=== PATIENT | female | born 1945 | race Caucasian/White ===

== ENCOUNTER 2018-08-08 17:07 | Inpatient (IN) ==
[2018-08-08] MEDS ORDERED: ALBUTEROL NEB INH ONE (17:56)
[2018-08-08] MEDS ORDERED: SOLU-MEDROL IV ONE (17:56)
--- NOTE | 2018-08-08 17:59 | PROVIDER DOCUMENTATION ---
HPI-General Adult - General Chief Complaint: Shortness of Breath Stated Complaint: LOW 02 Time Seen by Provider: 08/08/18 17:28 Source: patient Allergies/Adverse Reactions: Patient Allergies Allergy/AdvReac Type Severity Reaction Status Date / Time No Known Allergies Allergy Verified 04/26/18 09:00 Home Medications: Home Medication List Medication Instructions Recorded Confirmed Last Taken Type Omeprazole [Prilosec] 40 mg PO DAILY@0709/16/13 08/08/18 08/08/18 07:00 History Albuterol Sulfate Inhaler 2 puff INH Q6H PRN PRN 08/18/14 08/08/18 06/16/18 16: 00 History [Ventolin Hfa] Levothyroxine [Synthroid] 50 microgm PO DAILY@69908/18/14 08/08/18 08/08/18 07 :00 History Amlodipine [Norvasc] 5 mg PO DAILY tablet 01/07/18 08/08/18 08/08/18 07:00 Rx Losartan [Cozaar] 100 mg PO DAILY tablet 01/07/18 08/08/18 08/08/18 07:00 Rx Albuterol 2.5MG/Ipratrop 0.5MG 3 ml INH Q4H PRN PRN 06/17/18 08/08/18 06/16/18 14:00 History [Duoneb (A & A)] Potassium Chloride 1 tab PO TID 06/17/18 08/08/18 08/08/18 07:00 History Alprazolam [Xanax] 0.25 mg PO TID PRN PRN #20 tab 07/27/18 08/08/18 Unknown Rx Budesonide Inhaler [Pulmicort 1 puff INH RTBID #1 inhaler 07/27/18 08/08/1804/18 07:00 Rx Flexhaler] Guaifenesin/Dm [Robitussin-Dm] 10 ml PO Q4H PRN PRN bottle 07/27/18 08/08/18 Unknown Rx Ipratropium Randall Inhaler 2 puff INH [id number] #1 inhaler 07/27/18 08/08/1804/18 07:00 Rx [Atrovent Hfa] Loperamide [Imodium] 2 mg PO PRN PRN capsule 07/27/18 08/08/18 Unknown Rx Ondansetron Odt [Zofran Odt] 4 mg PO Q4-6H PRN PRN #20 tab 07/27/18 08/08/18 Unknown Rx Prednisone 5 mg PO DAILY #30 tab 07/27/18 08/08/18 08/08/18 07:00 Rx Sertraline [Zoloft] 50 mg PO DAILY #30 tab 07/27/18 08/08/18 08/08/18 07:00 Rx Tramadol [Ultram] 50 mg PO Q6H PRN PRN #20 tab 07/27/18 08/08/18 Unknown Rx - History of Present Illness -Gen Adult Nature of Presenting Problems: Sent here from Dr. Briceño's office for hypoxemia. She has had increasing dyspnea for last week. Endorses mild cough. Admitted recently for pna. Her cultures grew pseudomonas. She denies chest pain. On home oxygen. Location of Pain/Injury: reports: other (bilateral flank) Pain Radiation: reports: no radiation Quality of Pain: reports: sharp Severity: reports: mild Onset/Duration: reports: 3 days ago, 4 days ago Timing: reports: still present Context/Activities at Onset: reports: none Modifying Factors: worse with: nothing Associated Symptoms: reports: cough, shortness of breath. denies: anxiety, chest pain, constipation, dizziness, fatigue, headaches, malaise, sinus congestion/drainage, syncope, trouble walking Similar Symptoms Previously?: Yes Recently seen or treated by another doctor?: Yes Review of Systems - Adult - REVIEW OF SYSTEMS - ADULT Constitutional: reports: see HPI, fatique Eyes: reports: no symptoms reported Ears, Nose, Mouth & Throat: reports: no symptoms reported Cardiovascular: reports: no symptoms reported. denies: chest pain, syncope Respiratory: reports: see HPI, cough, shortness of breath, wheezing. denies: hemoptysis Gastrointestinal: reports: no symptoms reported Genitourinary: reports: no symptoms reported Musculoskeletal: reports: see HPI, back pain Integumentary: reports: no symptoms reported. denies: rash Neurological: reports: no symptoms reported. denies: numbness, paresthesia Psychiatric: reports: no symptoms reported Endocrine: reports: no symptoms reported Hematologic/Lymphatic: reports: no symptoms reported Allergic/Immunologic: reports: no symptoms reported All Other Systems: Reviewed and Negative Past History - Adult - PAST MEDICAL HISTORY-ADULT Review of Records: reports: Old Records Reviewed, Nursing Assessment Review, Medications Reviewed, Social history reviewed & non-contributory. Major Childhood Illnesses: reports: denies history Cardiovascular: reports: HTN Respiratory: reports: asthma, COPD (o2 at home) Gastrointestinal: reports: GERD Obstetrical/Gynecological: reports: other (Left Breast CA) Genitourinary: reports: denies history Musculoskeletal: reports: denies history Neurological: reports: denies history Endocrine/Immune: reports: thyroid disorder Other Conditions: reports: denies history - PRIOR SURGERIES/PROCEDURES Surgical/Procedure History: reports: cholecystectomy, hysterectomy, other ( MASTECTOMY) - IMMUNIZATION STATUS Childhood Immunizations: See Nurse Assessment Flu Vaccine: See Nurse Assessment - FAMILY HISTORY Family History: reviewed, not pertinent - SOCIAL HISTORY Smoking: denies Substance Use: none/never Alcohol Use Frequency: never Living Situation: family Physical Exam-General - PHYSICAL EXAM-ADULT Initial Vital Signs Reviewed: Yes - CONSTITUTIONAL General Appearance: alert, mild distress - EYES Eyes: pink conjunctivae - HEAD, EARS, NOSE, MOUTH & THROAT HENMT: moist mucous membranes - NECK Neck: supple - RESPIRATORY Respiratory: decreased breath sounds, wheezing, increased rate - CARDIOVASCULAR Cardiovascular: tachycardia - GASTROINTESTINAL (ABDOMEN) Abdominal Exam: soft - LYMPHATIC Lymphatic: no adenopathy - MUSCULOSKELETAL Back Exam: normal inspection Extremity: normal inspection, no pedal edema, no calf tenderness - SKIN Integumentary: normal color, normal turgor, warm/dry - NEUROLOGIC Neurologic: grossly normal - PSYCHIATRIC Psych/Mental Status: normal thought content Progress - PLAN OF CARE/RESULTS Progress/Plan/Lab Results: Vital Signs - 8 hr 08/08/18 17:17 Temperature 97.4 F L Pulse Rate 112 H Respiratory Rate 24 Blood Pressure 112/66 O2 Sat by Pulse Oximetry 89 L Orders Category Date Time Status Cardiac Monitoring DIRECTED Care 08/08/18 17:32 Active Oxygen Therapy- ED Nursing DIRECTED Care 08/08/18 17:32 Active Saline Loc NOW Care 08/08/18 17:32 Active CHEST-PORTABLE [RAD] Stat Exams 08/08/18 17:32 Ordered ABG [RESP] Routine Lab 08/08/18 17:56 Ordered BLOOD CULTURE [BLDCUL] Stat Lab 08/08/18 17:32 Uncollected CBC WITH ELECTRONIC DIFF [HEME] Stat Lab 08/08/18 17:32 Uncollected CK PROFILE [SP CHEM] Stat Lab 08/08/18 17:32 Uncollected COMPREHENSIVE METABOLIC PANEL [CHEM] Stat Lab 08/08/18 17:32 Uncollected LACTATE, PLASMA [CHEM] Stat Lab 08/08/18 17:32 Uncollected PRO B-NATRIURETIC PEPTIDE Stat Lab 08/08/18 17:32 Uncollected PROTIME WITH INR [COAG] Stat Lab 08/08/18 17:32 Uncollected PTT [COAG] Stat Lab 08/08/18 17:32 Uncollected TROPONIN T Stat Lab 08/08/18 17:32 Uncollected Albuterol [Albuterol Neb] Med 08/08/18 17:56 Discontinued 5 mg INH NOW ONE Methylprednisolone Sod Succ [Solu-Medrol] Med 08/08/18 17:56 Discontinued 80 mg IV NOW ONE Aerosol Treatments Stat Oth 08/08/18 17:56 Active BIPAP Stat Oth 08/08/18 17:56 Active CP/SOB/Palp >45 yrs of Age Stat Oth 08/08/18 17:32 Ordered EKG [EKG] Stat Ther 08/08/18 17:22 Ordered Ace VALENTIN: examined patient at bedside, increased rr, decreased breath sounds, working mild to moderately at breathing, PMH CHF, being placed on bipap, getting breathing treatment with it and ABG 30 min later. Agree with care and management thus far. 2030: Dr. Wilkins at bedside. Patient's pressure dropped, breathing more labored. An EG was started, fluids were given. Patient was repositioned. Her work of breathing improved and she became more alert. Dr. Diamond has been notified. Result Diagrams: 08/08/18 18:14 08/08/18 18:14 - XRAY 1 Impression: See EMR Report (EXAM: CHEST-PORTABLE 08/08/2018 HISTORY: dyspnea TECHNIQUE: AP portable at 1741 COMMENT: There is ill-defined opacity in both lung bases. This is worse on the left than on the previous study of 07/26/2018. IMPRESSION: Worsened pulmonary edema and/or pneumonia.) - CONSULTS/PCP/HOSPITALIST Notification #1 *Consult/PCP/Hospitalist*: Dr. Diamond Time Discussed: 19:19 Consult Disposition: Admit Departure - Departure Date of Disposition Decision: 08/08/18 Time of Disposition Decision: 19:19 DIAGNOSIS: Hypoxia Pneumonia Qualifiers: Pneumonia type: due to unspecified organism Laterality: bilateral Lung location : lower lobe of lung Qualified Code(s): J18.1 - Lobar pneumonia, unspecified organism Leukocytosis Qualifiers: Leukocytosis type: unspecified Qualified Code(s): D72.829 - Elevated white blood cell count, unspecified Respiratory failure Qualifiers: Chronicity: unspecified Respiratory failure complication: hypoxia and hypercapnia Qualified Code(s): J96.91 - Respiratory failure, unspecified with hypoxia; J96.92 - Respiratory failure, unspecified with hypercapnia Disposition: ADMITTED INPATIENT 09 Certified Medical Emergency: Emergent Condition: Fair Referrals and Follow-Ups: Low Bailey MD [Primary Care Provider] - - Critical Care Note This patient required my direct & personal management of CC.: Yes Total Time (mins): 48 Critical Care Statement: This patient required my direct personal management to treat or rule out processes, the absence of which, could potentiallly result in sudden, clinically significant life or limb threatening deterioration. Attestation - Physician/ KAVYA Attestation Patient care was provided by Advanced Practice Provider:: Yes Advanced Practice Provider:: Siva Cruz Advanced Practice Provider documentation review:: The Mid-level provider documentation, treatment plan and medical decision making was reviewed by the physician who agrees with all treatment and medical decision making by the [facility]. The physician spent face to face time with patient:: Yes Advanced Practice Provider documentation review:: Supervising physician onsite and consulted in the evaluation and care of this patient. The physician did have a face to face encounter with the patient.
--- NOTE | 2018-08-08 18:04 | Diag Imaging Result Doc PS360 ---
EXAM: CHEST-PORTABLE 08/08/2018 HISTORY: dyspnea TECHNIQUE: AP portable at 1741 COMMENT: There is ill-defined opacity in both lung bases. This is worse on the left than on the previous study of 07/26/2018. IMPRESSION: Worsened pulmonary edema and/or pneumonia. Electronically signed by Prem Rosenthal 08/08/2018 6:02 PM
[2018-08-08] MEDS ORDERED: ZOSYN 3.375 GM in NS 50 ML IV ONE (18:10)
[2018-08-08] MEDS ORDERED: VANCOMYCIN 1 GM/NS 1 GM/250 ML IVPB IV ONE (18:10)
[2018-08-08] MEDS ORDERED: ATIVAN IV ONE (18:28)
[2018-08-08 18:40] LABS: INR 0.92; PROTIME 13.1 Seconds (11.0-16.0)
[2018-08-08 18:41] LABS: PTT 20.9 Seconds (22.3-41.8)
[2018-08-08 18:48] LABS: BASO# 0.15 X1000 (0.0-0.2); EOS# 0.26 X1000 (0.0-0.7); EOS% 1.8 % (0.0-10.0); HEMOGLOBIN 10.2 g/dL (12.0-16.0); IMM GRAN# 0.94 X1000 (0.0-0.04); IMM GRAN% 6.4 % (0.0-0.5); LYMPH# 1.18 X1000 (1.2-3.4); MCHC 29.1 g/dL (33-37); MCV 99.4 FL (81-99); MONO# 0.93 X1000 (0.11-0.59); MONO% 6.3 % (1.7-9.3); MPV 10.2 FL (7.4-10.4); NEUT# 11.31 X1000 (1.4-6.5); NEUT% 76.5 % (42.2-75.2); PLT 417 X1000 (130-400); RBC 3.52 XMIL (4.2-5.4); RDW 15.6 % (11.5-14.5); WBC 14.77 X1000 (4.8-10.8)
[2018-08-08 18:57] LABS: AGAP 9; ALB/GLOB RATIO 1.1; ALKALINE PHOSPHATASE 72 U/L (32-104); BUN 12 mg/dL (8-22); CALCIUM 8.9 mg/dL (8.8-10.2); CHLORIDE 96 mmol/L (98-107); CK PROFILE 59 U/L (24-173); COSMO 286; CREATININE 0.5 mg/dL (0.5-0.9); ESTIMATED GFR > 60; GLUCOSE 123 mg/dL (70-104); GOT 22 U/L (10-30); GPT 12 U/L (10-36); POTASSIUM 5.4 mmol/L (3.5-5.1); SODIUM 143 mmol/L (136-145); TCO2 38 mmol/L (25-35); TOTAL BILIRUBIN 0.26 mg/dL (0.20-1.00); TOTAL PROTEIN 5.8 g/dL (6.3-8.3)
[2018-08-08] MEDS ORDERED: NS 1,000 ML IV ONE ×3 (19:14→21:50)
[2018-08-08 19:53] LABS: ALLEN TEST YES; BE 10.6 mmoll (-3.0-3.0); BLOOD TYPE ARTERIAL; HCO3-(ACT) 33.2 mmoll (20.0-26.0); METHB 1.1 % (0.0-1.5); O2(CT) 13.5 mL/dL (15.0-23.0); O2HB 96.7 % (95.0-99.0); PO2(98.6) 181 mmHg (60-100); SAMPLE BLOOD; SAO2 99.6 % (95.0-100.0); THB 9.6 g/dL (11.5-17.4); pH(98.6) 7.34 (7.35-7.45)
[2018-08-08 19:54] LABS: MODALITY BI PAP
[2018-08-08 19:55] LABS: PCO2(98.6) 71 mmHg (35-45)
[2018-08-08] MEDS ORDERED: LEVAQUIN 500 MG/D5W 500 MG/100 ML IVPB IV SCH (23:15)
[2018-08-08] MEDS ORDERED: VANCOMYCIN IV PER PHARMACY MISC SCH (23:15)
[2018-08-08] MEDS ORDERED: SODIUM CHLORIDE 0.9% INJ SCH (23:15)
[2018-08-08] MEDS: DUONEB (A & A) INH SCH (23:40)
[2018-08-09] MEDS: PROTONIX IV SCH ×2 (00:23→22:28)
[2018-08-09] MEDS ORDERED: KAYEXALATE PO ONE (01:10)
[2018-08-09] MEDS ORDERED: ATIVAN IV ONE (01:15)
[2018-08-09 01:30] LABS: URINE SOURCE CATH
[2018-08-09 01:37] LABS: BILIRUBIN URINE NEGATIVE (NEGATIVE); BLOOD URINE NEGATIVE (NEGATIVE); COLOR YELLOW; GLUCOSE URINE TRACE mg/dL (NEGATIVE); KETONE URINE NEGATIVE (NEGATIVE); LEUKOCYTES URINE NEGATIVE (NEGATIVE); NITRITE URINE NEGATIVE (NEGATIVE); PROTEIN URINE 30 mg/dL (NEGATIVE); SP GRAVITY URINE 1.017; TURBIDITY URINE CLEAR (CLEAR); UROBILINOGEN URINE NORMAL (NORMAL)
[2018-08-09] MEDS: NS 1,000 ML IV SCH ×2 (01:37→22:28)
[2018-08-09 01:58] LABS: UR EPITHELIAL CELLS >10 /HPF (<10); URINE BACTERIA NEGATIVE /HPF; URINE CASTS NONE SEEN; URINE CRYSTALS NONE SEEN; URINE RBC <10 /HPF (<10); URINE SMALL ROUND CELLS NONE SEEN; URINE WBC <10 /HPF (<10); URINE YEAST NONE SEEN
[2018-08-09] MEDS: ZOSYN 3.375 GM in NS 50 ML IV SCH ×5 (02:17→18:38)
[2018-08-09] MEDS: SOLU-MEDROL IV SCH ×4 (02:25→18:38)
[2018-08-09] MEDS ORDERED: VANCOMYCIN IV ONE (03:00)
[2018-08-09] MEDS ORDERED: NS IV ONE (03:00)
[2018-08-09] MEDS: DUONEB (A & A) INH SCH ×6 (03:30→22:56)
--- NOTE | 2018-08-09 04:46 | HISTORY AND PHYSICAL ---
CHIEF COMPLAINT: Shortness of breath. HISTORY OF PRESENT ILLNESS: Ms. Gail Love is a 72-year-old female. She does have a history of COPD, hypertension, hypothyroidism, breast cancer, gastroesophageal reflux disease. The patient had gone to the office of oncologist, Dr. Wagner, and was found to be hypoxic and was subsequently referred to the emergency room. In the ER, the patient was noted to have significant CO2 retention on her arterial blood gas. ABG was 7.34/71/181/99.6. X-ray of the chest showed worsening pulmonary edema and pneumonia. The patient has been placed on a BiPAP and will be sent to the intensive care unit for further management. PAST MEDICAL HISTORY: Notable for COPD, hypertension, B12 deficiency, chronic anxiety, hypothyroidism, gastroesophageal reflux disease, breast cancer - status post treatment, immunodeficiency. PAST SURGICAL HISTORY: She has had a left mastectomy, cholecystectomy, as well as hysterectomy. FAMILY HISTORY: Diabetes, hypertension, COPD. SOCIAL HISTORY: Quit smoking in the past. ALLERGIES: No known drug allergies. DISCHARGE MEDICATIONS: Medications include the following: Omeprazole 40 mg p.o. daily, albuterol sulfate inhaler two puffs every 6 hours p.r.n., levothyroxine 50 mg p.o. daily, amlodipine 5 mg p.o. daily, losartan 100 mg p.o. daily, DuoNeb every 4 hours p.r.n., potassium chloride one p.o. 3 times a day, Xanax 0.25 mg p.o. three times a day p.r.n., Pulmicort 1 puff twice a day, Robitussin DM 10 mL every 4 hours p.r.n., Atrovent HFA as directed, Imodium 2 mg p.o. p.r.n., Zofran oral dissolving tablets 4 mg every 4 to 6 hours p.r.n., prednisone 5 mg p.o. daily, sertraline 50 mg p.o. daily, tramadol 50 mg p.o. every 6 hours p.r.n. REVIEW OF SYSTEMS: Could not be obtained from this patient who is currently sedated and has a BiPAP in place. PHYSICAL EXAMINATION: VITAL SIGNS: Temperature 97.4 degrees, pulse 112, respiratory rate is 24, blood pressure 112/66, oxygen saturation is 99%. HEENT: She is atraumatic, normocephalic. She is anicteric. She does have a BiPAP mask in place. NECK: No lymphadenopathy or thyromegaly. CARDIOVASCULAR: Distant heart sounds. RESPIRATORY SYSTEM: No rales or rhonchi noted. ABDOMEN: Soft, nontender. No masses felt. EXTREMITIES: No evidence of significant edema in the lower extremities. CENTRAL NERVOUS SYSTEM: The patient is currently sedated so this is difficult to assess. LABS: WBCs 14.77, hematocrit is 35, with a platelet count of 417,000. INR is 0.92. ABG 7.34/71/181/99.6 percent. Sodium is 140, potassium 5.4, chloride is 96, bicarb 30, BUN is 12, creatinine was 0.5. X-ray of the chest shows worsening edema and/or pneumonia. ASSESSMENT AND PLAN: This is a 72-year-old female who presented to the hospital because of shortness of breath and noted to be hypoxic. Also noted to have CO2 retention. She is currently on a BiPAP mask. 1. Acute hypercapnic respiratory failure, probably secondary to chronic obstructive pulmonary disease exacerbation. We will maintain patient on BiPAP for noninvasive positive pressure ventilation and would maintain patient on oxygen to keep saturations above 90. 2. Chronic obstructive pulmonary disease exacerbation. Maintain patient on nebulized bronchodilators, steroids, as well as antibiotics. 3. Pneumonia, apparently healthcare-associated pneumonia. Obtain sputum and blood cultures. Maintain patient on antibiotics. 4. Hypertension. Controlled without antihypertensive medications. We will continue to follow. 5. Hypothyroidism. Resume her thyroid medications. 6. Anxiety with depression. Resume psych meds. 7. History of breast cancer. Aware. 8. Immunodeficiency. IVIG as recommended by infectious disease. 9. Deep vein thrombosis prophylaxis. Lovenox. 10. Gastrointestinal prophylaxis. Proton pump inhibitor. cc: Krishan Diamond MD [facility]
--- NOTE | 2018-08-09 07:45 | EKG Report ---
Test Performed on : 08/08/2018 5:26:27 PM Test Reason : SOB Blood Pressure : / mmHG Vent. Rate : 105 BPM Atrial Rate : 105 BPM P-R Int : 144 ms QRS Dur : 062 ms QT Int : 318 ms P-R-T Axes : 067 059 058 degrees QTc Int : 420 ms Sinus tachycardia. with premature atrial complexes. with aberrant conduction. Otherwise normal ECG When compared with ECG of 16-JUN-2018 15:50, (Unconfirmed) aberrant conduction. is now present Unconfirmed Result
[2018-08-09] MEDS: LOVENOX SUBQ SCH (08:00)
[2018-08-09 08:22] LABS: AGAP 9; ALB/GLOB RATIO 0.8; ALBUMIN 2.2 g/dL (3.5-5.0); ALKALINE PHOSPHATASE 52 U/L (32-104); BASO# 0.06 X1000 (0.0-0.2); BASO% 0.4 % (0.0-0.8); BUN 15 mg/dL (8-22); CALCIUM 7.6 mg/dL (8.8-10.2); CHLORIDE 102 mmol/L (98-107); COSMO 288; CREATININE 0.5 mg/dL (0.5-0.9); ESTIMATED GFR > 60; GLUCOSE 137 mg/dL (70-104); GOT 11 U/L (10-30); GPT 9 U/L (10-36); HEMATOCRIT 29.8 % (37.0-47.0); HEMOGLOBIN 8.5 g/dL (12.0-16.0); IMM GRAN# 0.61 X1000 (0.0-0.04); LYMPH# 0.94 X1000 (1.2-3.4); LYMPH% 6.2 % (20.5-51.1); MCH 28.2 PG (27-31); MCHC 28.5 g/dL (33-37); MONO# 0.25 X1000 (0.11-0.59); MONO% 1.6 % (1.7-9.3); MPV 9.4 FL (7.4-10.4); NEUT# 13.34 X1000 (1.4-6.5); NEUT% 87.8 % (42.2-75.2); PLT 364 X1000 (130-400); POTASSIUM 4.7 mmol/L (3.5-5.1); RBC 3.01 XMIL (4.2-5.4); RDW 15.7 % (11.5-14.5); SODIUM 143 mmol/L (136-145); TCO2 32 mmol/L (25-35); TOTAL BILIRUBIN 0.21 mg/dL (0.20-1.00)
[2018-08-09 08:30] LABS: BANDS 4 % (0-1); LYMPHS 6 % (21-51); SEGS 90 % (42-75)
--- NOTE | 2018-08-09 09:14 | PROGRESS NOTE ---
DATE: 08/09/2018 SUBJECTIVE: Recently discharged on 07/30/2018 with the diagnosis of Pseudomonas pneumonia, end- stage COPD with bronchiectasis, weakness, chronic anxiety, and history of breast cancer. She was readmitted this time due to hypoxemia. Apparently this patient had gone to the oncologist's office, Dr. Wagner, and they sent this patient over here. She seems to be extremely weak and like I mentioned before, she has end-stage COPD and recent pneumonia due to Pseudomonas. At this moment, she is on the BiPAP machine in the ICU. She seems to be somnolent and extremely weak. OBJECTIVE: Vital Signs: Temperature 96.7 degrees, pulse 93, respiratory rate 14, blood pressure 103/53, oxygen saturation 100% on the BiPAP machine. HEENT: Head normocephalic. No trauma. PERRLA. Neck: Supple. Central trachea. Chest: Coarse breath sounds bilaterally with decreased breath sounds mostly at the bases and some end-expiratory wheezing. Abdomen: Soft, nontender, nondistended. No hepatosplenomegaly. Extremities: No edema. No clubbing. No cyanosis. Neurological: The patient's extremely weak. She is somnolent. She is trying to wake up, but it is hard for her. She is following commands on and off. LABORATORY DATA: WBC 15.2, hemoglobin 8.5, hematocrit 29.8, platelets 364,000. Sodium 143, potassium 4.7, chloride 102, bicarbonate 32, BUN 15, creatinine 0.5, glucose 137, calcium 7.6, albumin 2.2. Pending ABGs. ASSESSMENT AND PLAN: 1. Acute hypoxemic and hypercapnic respiratory failure secondary to advanced chronic obstructive pulmonary disease exacerbation. Continue with the BiPAP machine. Pulmonary Department will evaluate this patient. I will ask for a new arterial blood gas and x-ray. She does have bilateral lower lobe pulmonary edema and possible pneumonia. She was recently discharged on 07/30/2018 due to Pseudomonas pneumonia and chronic obstructive pulmonary disease. Will monitor. 2. Chronic obstructive pulmonary disease exacerbation. As above. Continue with oxygen supplementation, bronchodilators, steroids, and antibiotics. Infectious Disease Department has been consulted. 3. Pneumonia. Infectious Disease Department has been consulted. Like I mentioned before, she had a pneumonia due to Pseudomonas. I will ask for a sputum culture. A blood culture has been already requested. Urinalysis looks clean. 4. Anxiety and depression. Continue with her home medications. 5. Hypothyroidism. Continue with her thyroid medication. 6. Hypertension, controlled without antihypertensive medication. 7. Immunodeficiency. Infectious Disease Department has been consulted. Probably we will need to get some immunoglobulin levels. 8. Deep vein thrombosis prophylaxis with Lovenox. 9. Gastrointestinal prophylaxis with proton pump inhibitors. CRITICAL CARE TIME: Forty-five minutes. cc: Aden Fernandes MD
[2018-08-09] MEDS: ZOLOFT PO SCH (09:34)
[2018-08-09] MEDS ORDERED: BLISTEX MEDICATED BERRY LIP BALM TOP PRN (09:36)
[2018-08-09 10:15] LABS: ALLEN TEST YES; BE 6.9 mmoll (-3.0-3.0); BLOOD TYPE ARTERIAL; HCO3-(ACT) 30.3 mmoll (20.0-26.0); METHB 1.3 % (0.0-1.5); O2(CT) 12.9 mL/dL (15.0-23.0); O2HB 95.5 % (95.0-99.0); PO2(98.6) 87 mmHg (60-100); SAMPLE BLOOD; SAO2 98.2 % (95.0-100.0); THB 9.5 g/dL (11.5-17.4); pH(98.6) 7.33 (7.35-7.45)
[2018-08-09 10:17] LABS: MODALITY BI PAP; PCO2(98.6) 65 mmHg (35-45)
--- NOTE | 2018-08-09 11:43 | Diag Imaging Result Doc PS360 ---
EXAM: CHEST-PORTABLE 08/09/2018 HISTORY: SOB TECHNIQUE: AP portable at 1127 COMMENT: There is alveolar opacity in both lower lung almeida with obscuration of the hemidiaphragms and probable bilateral pleural effusions. Compared to 08/08/2018 this is slightly worse. IMPRESSION: Worsened pulmonary edema and/or pneumonia with pleural effusions. Electronically signed by Prem Rosenthal 08/09/2018 11:40 AM
--- NOTE | 2018-08-09 14:30 | ECHO REPORT ---
ORDER DATE: 08/09/2018 INTERPRETING PHYSICIAN: Dr. Jaydon Gonzalez. ECHOCARDIOGRAPHIC MEASUREMENTS: 1. Interventricular septum 0.8 cm. 2. Left ventricular posterior wall 0.8 cm. 3. Diastolic diameter 4.0 cm. 4. Left atrium 3.1 cm. 5. Aorta 3.0 cm. SUMMARY OF THE 2-DIMENSIONAL IMAGIN. Aortic valve leaflets were calcified but not well visualized. 2. Technically suboptimal study. 3. Tricuspid valve was normal. Pulmonic valve not well visualized. Mitral valve was normal. 4. Normal left ventricular cavity size. 5. Peak velocity across the aortic valve less than 2 m/sec. 6. There is aortic calcification. There is no stenosis by Doppler studies. There is no aortic regurgitation. There is trace mitral regurgitation. Trace tricuspid regurgitations. 7. Poor apical windows. 8. Definity was used to assess left ventricular systolic function. Normal left ventricular cavity size. Estimated ejection fraction of 60%-65%. There is no pericardial effusion, anterior echo-free space, history of pericardial fat pad noted. cc: MD Krishan Patel MD
[2018-08-09] MEDS: ZYVOX 600 MG/D5W 600 MG/300 ML IVPB IV SCH (17:48)
--- NOTE | 2018-08-09 23:47 | CONSULTATION ---
DATE OF CONSULTATION: 08/09/2018 REQUESTING PROVIDER: Dr. Aden Palma. REASON FOR CONSULTATION: Respiratory failure, COPD, pneumonia. HISTORY OF PRESENT ILLNESS: This is a 72-year-old female with a medical history of COPD, chronic hypoxic hypercapnic respiratory failure, hypertension, gastroesophageal reflux disease, hypothyroidism, B12 deficiency, insomnia, anxiety, history of left breast cancer, obstructive sleep apnea and immunodeficiency. The patient has a significant history of recurrent COPD exacerbation and pneumonia since 2013. Her last admission is between 06/16 to 07/30/2018 with Pseudomonas pneumonia, end-stage COPD with bronchiectasis and acute on chronic respiratory failure. Based on H&P, the patient had gone to the office of oncologist, Dr. Wagner, and was found to be hypoxic and was subsequently referred to the emergency room. In the ER, lab revealed pH 7.34, pCO2 71, pO2 191 and oxyhemoglobin 99.6. Chest x-ray revealed worsening pulmonary edema and pneumonia. The patient has been placed on BiPAP and admitted to the ICU for further evaluation and management. At the time of my examination, the patient is on BiPAP with FiO2 60%. Patient appears anxious. She tries to talk at times, but can barely be understood. The nurse reported that the Respiratory Therapy tried weaning the FiO2 to 50% at an earlier time, but patient apparently became hypoxic again with oxygen saturation dropped to 80s. The patient has two friends at bedside at this time. PAST MEDICAL HISTORY: 1. Chronic obstructive pulmonary disease, severe end-stage with frequent pneumonia. 2. Chronic hypoxic hypercapnic respiratory failure on home oxygen 2 to 3 L and Astral noninvasive ventilator. 3. Hypertension. 4. Gastroesophageal reflux disease. 5. Hypothyroidism. 6. B12 deficiency. 7. Insomnia. 8. Anxiety. 9. History of left breast cancer status post mastectomy, followed by Dr. Wagner. 10. Obstructive sleep apnea, intolerant with BiPAP from severe worsening end- stage lung disease. 11. Immunodeficiency. 12. Generalized weakness and deconditioning. PAST SURGICAL HISTORY: 1. Left mastectomy. 2. Cholecystectomy. 3. Hysterectomy. SOCIAL HISTORY: The patient has a significant history of tobacco use about 2 packs per day for over 30 years, but she quit in 2014. She denies history of alcohol or illicit drug use. FAMILY HISTORY: Positive for hypertension, coronary artery disease, diabetes and cancer. ALLERGIES: No known drug allergies. REVIEW OF SYSTEMS: unable to be obtained. PHYSICAL EXAMINATION: Vital Signs: Temperature 96.7 degrees, blood pressure 103/53, pulse 89, respiratory rate 12, oxygen saturation 100% on BiPAP at 16/8 with FiO2 60%. General: Chronically ill-appearing, elderly and malnourished, in mild stress. HEENT: Atraumatic. Trachea midline. Mucosa pink and slightly dry. Respiratory: Barrel-shaped chest; Diminished breathing sounds bilaterally, otherwise clear to auscultation. Cardiovascular: Regular rate and rhythm. Gastrointestinal: Normoactive bowel sounds in all 4 quadrants. Soft and nondistended. Extremities: Trace edema noted above the ankle area bilaterally. No cyanosis. No clubbing. Neurologic: Awake and alert with generalized weakness. IMAGING DATA: Chest x-ray reveals worsened pulmonary edema plus/minus pneumonia with pleural effusions. LAB DATA: White blood cell 15.20, hemoglobin 8.5, hematocrit 29.8, platelets 364,000. Sodium 143, potassium 4.7, chloride 102, carbon dioxide 32, BUN 15, creatinine 0.5, glucose 137. ABG, pH 7.33, pCO2 65, PO2 87, HC03 is 30.3, base excess 6.9, and oxyhemoglobin 95.5. ASSESSMENT: This is a 72-year-old female with multiple medical history including chronic obstructive pulmonary disease, chronic respiratory failure, hypertension , gastroesophageal reflux disease, hypothyroidism, obstructive sleep apnea and recurrent pneumonia. She has been admitted to the ICU with acute on chronic hypercapnic hypoxemic respiratory failure probably secondary to severe end-stage chronic obstructive pulmonary disease exacerbation, and health care associated pneumonia. 1. Acute hypercapnic respiratory failure. 2. Chronic obstructive pulmonary disease exacerbation. 3. Pneumonia. 4. Pleural effusion. 5. Pulmonary edema. PLAN: 1. Continue antibiotics, steroids and bronchodilators as prescribed. 2. Continue supplemental oxygen and BiPAP. 3. Consider nebulized Mucomyst and respiratory physical therapy. 4. Chest x-ray and ABG if indicated. 5. Dr. Dyer, the Infectious Disease specialist, is consulted. 6. Continue GI and DVT prophylaxis. Thank you for the courtesy of this consult. Dictated by ALEXUS Rick for Jesi Snow MD cc: ALEXUS Rick MD [facility]
[2018-08-10] MEDS: ZOSYN 3.375 GM in NS 50 ML IV SCH ×4 (00:03→18:14)
[2018-08-10] MEDS ORDERED: ATIVAN IV ONE (01:08)
[2018-08-10] MEDS: DUONEB (A & A) INH SCH ×6 (03:30→23:09)
[2018-08-10] MEDS: ZYVOX 600 MG/D5W 600 MG/300 ML IVPB IV SCH ×2 (03:38→13:38)
[2018-08-10] MEDS: SOLU-MEDROL IV SCH ×3 (03:38→18:13)
[2018-08-10 04:53] LABS: ALLEN TEST YES; BE 7.6 mmoll (-3.0-3.0); BLOOD TYPE ARTERIAL; HCO3-(ACT) 30.9 mmoll (20.0-26.0); METHB 0.6 % (0.0-1.5); O2(CT) 10.7 mL/dL (15.0-23.0); PCO2(98.6) 44 mmHg (35-45); PO2(98.6) 92 mmHg (60-100); SAMPLE BLOOD; SAO2 98.9 % (95.0-100.0); THB 7.7 g/dL (11.5-17.4); pH(98.6) 7.47 (7.35-7.45)
[2018-08-10 05:00] LABS: MODALITY BI PAP
[2018-08-10 05:59] LABS: BASO# 0.03 X1000 (0.0-0.2); BASO% 0.2 % (0.0-0.8); HEMATOCRIT 27.8 % (37.0-47.0); HEMOGLOBIN 8.2 g/dL (12.0-16.0); IMM GRAN# 0.41 X1000 (0.0-0.04); IMM GRAN% 2.6 % (0.0-0.5); LYMPH# 0.89 X1000 (1.2-3.4); LYMPH% 5.6 % (20.5-51.1); MCH 28.5 PG (27-31); MCHC 29.5 g/dL (33-37); MCV 96.5 FL (81-99); MONO# 0.76 X1000 (0.11-0.59); MONO% 4.7 % (1.7-9.3); MPV 9.9 FL (7.4-10.4); NEUT# 13.93 X1000 (1.4-6.5); NEUT% 86.9 % (42.2-75.2); PLT 384 X1000 (130-400); RBC 2.88 XMIL (4.2-5.4); RDW 15.7 % (11.5-14.5); WBC 16.02 X1000 (4.8-10.8)
[2018-08-10] MEDS: SYNTHROID PO SCH (06:25)
[2018-08-10 06:35] LABS: BASO 4 % (0-1); LYMPHS 24 % (21-51); MONO 8 % (1-9); SEGS 64 % (42-75)
--- NOTE | 2018-08-10 06:36 | Diag Imaging Result Doc PS360 ---
EXAM: CHEST-1 VIEW HISTORY: SOB TECHNIQUE: Chest single view COMPARISON: 08/09/2018 FINDINGS: There are small pleural effusions as well as basilar atelectasis. There is vascular distention and there may be underlying basilar infiltrates. The overall appearance is similar to the prior exam. IMPRESSION: No interval improvement. Electronically signed by Jamie Stephenson 08/10/2018 6:34 AM
[2018-08-10] MEDS ORDERED: VANCOMYCIN 1 GM/NS 1 GM/250 ML IVPB IV SCH (08:00)
[2018-08-10] MEDS: CLINIMIX E 4.25%-5% SOLUTION 1,000 ML IV SCH (08:18)
--- NOTE | 2018-08-10 08:18 | PROGRESS NOTE ---
DATE: 08/10/2018 SUBJECTIVE: The patient has been recently discharged on 07/30/2018 with a diagnosis of Pseudomonas, end-stage COPD, bronchiectasis, weakness, chronic anxiety, history of breast cancer. She was readmitted at this time because of hypoxemia and shortness of breath. Recently, she had pneumonia due to Pseudomonas. At this moment. She continues with the BiPAP machine and it looks like when we remove or stop the BiPAP machine, she is not able to tolerate that, but she seems to be more awake and following commands today, oriented x3. She is not able to eat at this moment, so I will put this patient on Clinimix. If tomorrow we are still using the BiPAP machine, probably I will put an NG tube down and I will start feeding her. OBJECTIVE: Vital Signs: Temperature 97.3 degrees, pulse 101, respiratory rate 21, blood pressure 119/54, oxygen saturation 96% on the BiPAP machine. HEENT: Head normocephalic. No trauma. PERRLA. Neck: Supple. No JVD. No masses. Central trachea. Chest: Coarse breath sounds bilaterally with decreased breath sounds mostly at the bases. I do not hear any wheezing today. Abdomen: Soft, nontender, nondistended. No hepatosplenomegaly. Extremities: No edema. No clubbing. No cyanosis. Neurological: The patient is extremely weak. She is alert and oriented x3. She is following commands. LABORATORY DATA: WBC 16, hemoglobin 8.2, hematocrit 27.8, platelets 384,000. Pending BMP. ASSESSMENT AND PLAN: 1. Acute hypoxemic and hypercapnic respiratory failure secondary to advanced chronic obstructive pulmonary disease exacerbation. Continue with the BiPAP machine. Pulmonary Department on board. Infectious Disease Department has been consulted already. For now, will continue with Zosyn and Zyvox. 2. Chronic obstructive pulmonary disease exacerbation. Continue with oxygen supplementation and bronchodilators. I will decrease a little bit the dose of the steroids and antibiotics. Infectious Disease Department on board. 3. Pneumonia with antibiotics. Infectious Disease on board. 4. Anxiety and depression. Continue home medications. 5. Hypothyroidism. Continue with thyroid medication. 6. Hypertension, controlled without any antihypertensive medication. 7. Immune deficiency. Aware. 8. Deep vein thrombosis prophylaxis with Lovenox. 9. Gastrointestinal prophylaxis with proton pump inhibitors. This patient has been placed DNR level 1 by her family. We will continue with medical treatment. Her prognosis is poor due to her advanced chronic obstructive pulmonary disease, weakness, pneumonia, and age. CRITICAL CARE TIME: Thirty minutes. cc: Aden Fernandes MD
[2018-08-10 08:19] LABS: AGAP 10; BUN 18 mg/dL (8-22); CALCIUM 7.1 mg/dL (8.8-10.2); CHLORIDE 102 mmol/L (98-107); COSMO 294; CREATININE 0.4 mg/dL (0.5-0.9); ESTIMATED GFR > 60; GLUCOSE 157 mg/dL (70-104); SODIUM 145 mmol/L (136-145); TCO2 33 mmol/L (25-35)
[2018-08-10] MEDS: LOVENOX SUBQ SCH (08:31)
[2018-08-10] MEDS: ZOLOFT PO SCH (08:33)
[2018-08-10] MEDS: LASIX IV SCH ×2 (10:13→23:52)
--- NOTE | 2018-08-10 10:36 | PULMONOLOGY PROGRESS NOTE ---
DATE: 08/10/2018 SUBJECTIVE: The patient is on BiPAP. She appears to be comfortable. OBJECTIVE: Vital Signs: The patient has been afebrile the last 24 hours. Blood pressure 104/61, heart rate 103, respiratory rate 21 oxygen saturation 96%. HEENT: Bitemporal wasting. EOMI, PERRL, oropharynx evaluation is limited, but appears clear. Neck: Supple. Chest: Reveals prolonged expiratory phase with occasional rhonchi. Breath sounds are diminished. Cardiac exam: Distant heart sounds. Normal S1, normal S2. Abdomen: Soft. Extremities: Reveal trace edema. LABORATORIES: White blood count 16.0, hemoglobin 8.2, platelet count 384. Arterial blood gas: A pH of 7.47, pCO2 of 44, PO2 of 92. MICROBIOLOGY: Reveals no new data. IMAGING: Chest x-ray reveals small bibasilar effusions with bibasilar infiltrates. IMPRESSION: A 72 year old with end-stage chronic obstructive pulmonary disease, bronchiectasis, history of Pseudomonas pneumonia,with acute hypercapnic respiratory failure, acute hypoxemic respiratory failure, with marginal improvement with home BiPAP. RECOMMENDATIONS: 1. Continue anti-pseudomonal antibiotics. 2. Continue bronchial hygiene. 3. Continue bronchodilators. 4. Prognosis: Poor. Agree with current resuscitation status, which is to allow her to have a natural . cc: Mario Regalado MD
--- NOTE | 2018-08-10 21:22 | HEMO/ONC CONSULTATION ---
DATE: 08/09/2018 ADMITTING PHYSICIAN: Dr. Palma. REQUESTING PHYSICIAN: Dr. Palma. We appreciate this consult. CHIEF COMPLAINT: Breast cancer. HISTORY OF PRESENT ILLNESS: Ms Gail Love is a pleasant 72-year-old female well known to Dr. Wagner with a history of stage IV breast cancer with skin and bone involvement. The patient has been maintained on Faslodex and Zometa with her last dose being 08/08/2018. After the patient was seen in clinic and was treated the patient was noted to be extremely dyspneic. Oxygen saturation was 75% with no improvement with rest or an increase in oxygen by nasal cannula. It was recommended that the patient present to [facility] Emergency Department. Of note, the patient has recently had an extensive hospital stay secondary to end-stage COPD exacerbation with pneumonia and respiratory failure. The patient presented to [facility] Emergency Department and was noted to have significant CO2 retention. She was admitted to [facility] intensive care unit and was placed on BiPAP. We are consulted as the patient is well known to us. PAST MEDICAL HISTORY: 1. COPD. 2. Hypertension. 3. B12 deficiency. 4. Chronic anxiety. 5. Hypothyroidism. 6. Gastroesophageal reflux disease. 7. Breast cancer with skin and bone involvement. 8. Amino deficiency. PAST SURGICAL HISTORY: 1. Left mastectomy. 2. Cholecystectomy. 3. Hysterectomy. FAMILY HISTORY: Negative for any hematologic or oncologic problems. SOCIAL HISTORY: The patient has a history of smoking cigarettes and has quit years ago. MEDICATIONS ON ADMISSION: 1. Omeprazole. 2. Albuterol. 3. Levothyroxine. 4. Amlodipine. 5. Losartan. 6. DuoNeb. 7. Potassium chloride. 8. Xanax. 9. Pulmicort. 10. Robitussin. 11. Atrovent. 12. Imodium. 13. Zofran. 14. Prednisone. 15. Sertraline. 16. Tramadol. ALLERGIES: The patient has no known drug allergies. REVIEW OF SYSTEMS: A 14 point review of systems was attempted and is unable to be obtained as the patient is currently sedated and on BiPAP. PHYSICAL EXAM: Ms. Gail Love is a 72-year-old female lying supine in bed on BiPAP who appears very frail and very sick. Vital Signs: Temperature 96.7 degrees, blood pressure 103/53, heart rate 93, respirations 14, O2 saturation 100% on BiPAP. HEENT: Normocephalic, atraumatic. Mucous membranes dry and pale. Sclerae anicteric. Extraocular movements intact. Neck: Supple. Lungs: With decreased breath sounds throughout. CV: S1-S2 is heard. No murmurs, rubs, gallops. Abdomen: Nondistended. Extremities: Without clubbing, cyanosis. The patient does have trace bilateral lower extremity edema. Dermatologic: No rashes, bruises or lesions. Neurologic: The patient is somnolent and sedated at this time. She has no overt focal deficits. ASSESSMENT AND PLAN: 1. Stage IV breast cancer with skin and bone involvement on Faslodex and Zometa with last dose being 08/08/2018. We will hold at this time. 2. Acute hypoxemic respiratory failure secondary to advanced chronic obstructive pulmonary disease with exacerbation currently on BiPAP, pulmonology is following. 3. Chronic obstructive pulmonary disease exacerbation on oxygen, steroids. Again pulmonology is following. 4. Pneumonia recurrent on antibiotics. Blood cultures are currently pending. Infectious disease is following. 5. Immunodeficiency. We will check an IgG level at this time. 6. We will follow along with you and make further recommendations pending outcomes. The above reflects the history exam, assessment and plan of Dr. Wagner. Dictated by ALEXUS Cat for Olu Wagner MD cc: ALEXUS Cat MD
--- NOTE | 2018-08-10 21:27 | INFECTIOUS DISEASE PROGRESS NO ---
DATE: 08/10/2018 PRESENT ILLNESS: Patient is admitted to the hospital with what appears to be a combination of pneumonia and pulmonary venous congestion. MEDICATIONS: The patient is on a combination of Zyvox and Zosyn. PHYSICAL EXAMINATION: Vital Signs: Temperature is 98.3 degrees, pulse 108, respirations 24, blood pressure 120/62. The patient weighs 102 pounds. General: This is an ill -appearing elderly female. She has a BiPAP mask on and still appears to be somewhat dyspneic at rest. Head/eyes/ears/nose/throat: As mentioned above, she has a BiPAP mask on. There is no drainage from the nose or ears. There were no white patches on the tongue. Thorax: Patient has an increased AP diameter of the chest. Neck: No stiffness. Lungs: Clear to auscultation. Cardiovascular: Heart rate is rapid. At times it appeared regular and other times it was irregular. Abdomen: Soft and not tender. Neurologic: The patient is arousable. She can move her extremities. There is no tremor. LAB AND X-RAY: Chest x-ray shows infiltrates and pulmonary venous congestion. The IgG level is 766. Blood cultures are negative. CBC today shows a white count of 16,020, hemoglobin 8.2, and platelet count 384,000. Blood cultures are sterile. Chest x-ray shows combination of pneumonia and pulmonary venous congestion. A procalcitonin level has been drawn, the results of which are pending. The patient also has COPD and gastroesophageal reflux disease. ASSESSMENT AND PLAN: The patient has pneumonia and pulmonary venous congestion. Will continue antibiotics pending test results. COMORBIDITIES: Include chronic obstructive pulmonary disease, gastroesophageal reflux disease, and immunoglobulin deficiency. cc: Abraham Dyer MD [facility]
[2018-08-10] MEDS: PROTONIX IV SCH (23:52)
[2018-08-11] MEDS: ZOSYN 3.375 GM in NS 50 ML IV SCH ×4 (01:03→20:31)
[2018-08-11] MEDS: ZYVOX 600 MG/D5W 600 MG/300 ML IVPB IV SCH ×2 (02:36→14:34)
[2018-08-11] MEDS: SOLU-MEDROL IV SCH ×3 (02:36→20:31)
[2018-08-11] MEDS: ZOFRAN IV PRN (04:15)
[2018-08-11 06:05] LABS: INR 1.01; PROTIME 14.1 Seconds (11.0-16.0)
[2018-08-11 06:10] LABS: ALLEN TEST YES; BE 13.5 mmoll (-3.0-3.0); BLOOD TYPE ARTERIAL; HCO3-(ACT) 35.2 mmoll (20.0-26.0); O2(CT) 21.1 mL/dL (15.0-23.0); PO2(98.6) 60 mmHg (60-100); SAMPLE BLOOD; SAO2 91.4 % (95.0-100.0); THB 16.9 g/dL (11.5-17.4); pH(98.6) 7.37 (7.35-7.45)
[2018-08-11 06:11] LABS: PCO2(98.6) 75 mmHg (35-45)
[2018-08-11 06:12] LABS: MODALITY BI PAP; O2HB 89.1 % (95.0-99.0)
[2018-08-11 06:23] LABS: BASO# 0.04 X1000 (0.0-0.2); BASO% 0.2 % (0.0-0.8); HEMATOCRIT 31.2 % (37.0-47.0); HEMOGLOBIN 9.2 g/dL (12.0-16.0); IMM GRAN# 0.49 X1000 (0.0-0.04); IMM GRAN% 2.8 % (0.0-0.5); LYMPH# 0.47 X1000 (1.2-3.4); LYMPH% 2.7 % (20.5-51.1); MCH 28.1 PG (27-31); MCHC 29.5 g/dL (33-37); MCV 95.4 FL (81-99); MONO% 7.5 % (1.7-9.3); MPV 9.7 FL (7.4-10.4); NEUT# 15.12 X1000 (1.4-6.5); NEUT% 86.8 % (42.2-75.2); PLT 470 X1000 (130-400); RBC 3.27 XMIL (4.2-5.4); RDW 15.8 % (11.5-14.5); WBC 17.42 X1000 (4.8-10.8)
[2018-08-11 06:43] LABS: AGAP 11; BUN 15 mg/dL (8-22); CALCIUM 7.6 mg/dL (8.8-10.2); CHLORIDE 93 mmol/L (98-107); COSMO 291; CREATININE 0.5 mg/dL (0.5-0.9); ESTIMATED GFR > 60; GLUCOSE 187 mg/dL (70-104); SODIUM 143 mmol/L (136-145); TCO2 39 mmol/L (25-35)
[2018-08-11] MEDS: SYNTHROID PO SCH ×2 (06:50→07:09)
[2018-08-11 07:02] LABS: POTASSIUM 2.3 mmol/L (3.5-5.1)
[2018-08-11 07:23] LABS: LYMPHS 2 % (21-51); MONO 6 % (1-9); SEGS 92 % (42-75)
[2018-08-11] MEDS: DUONEB (A & A) INH SCH ×6 (07:26→23:31)
[2018-08-11] MEDS: LOVENOX SUBQ SCH (08:42)
[2018-08-11] MEDS: CLINIMIX E 4.25%-5% SOLUTION 1,000 ML IV SCH (08:42)
--- NOTE | 2018-08-11 08:45 | Diag Imaging Result Doc PS360 ---
CHEST-1 VIEW - 08/11/2018 INDICATION: SOB COMPARISON: 08/10/2018 FINDINGS: Stable bibasilar infiltrates left greater than right, suspicious for pneumonia. Heart size is normal. There are trace pleural effusions. IMPRESSION: No change from prior. Electronically signed by Colin Garrison 08/11/2018 8:43 AM
--- NOTE | 2018-08-11 09:03 | PROGRESS NOTE ---
DATE: 08/11/2018 SUBJECTIVE: Patient seems to be more awake. She is following commands today. She is still on the BiPAP machine. Her pCO2 is still high at 75. Oxyhemoglobin is 89.1. Potassium level is low at 2.3. She does not have a peripheral line, and I have requested a PICC line today. After placing the PICC line, I will give her potassium IV. I do not think she is able to tolerate potassium through her mouth. I talked to the patient about placing an NG tube so I can give her some nutrition and medical treatment. She agreed with that, but she wants to wait until tomorrow. For now, we will continue with Clinimix. OBJECTIVE: Vital Signs: Temperature 97.6 degrees, pulse 108, respiratory rate 18, blood pressure 146/64, oxygen saturation 98 on the BiPAP machine. HEENT: Head normocephalic. No trauma. PERRLA. Neck: Supple. No JVD. No masses. Central trachea. Chest: Coarse breath sounds bilaterally with decreased breath sounds mostly at the bases. No wheezing today. Abdomen: Soft, nontender, nondistended. No hepatosplenomegaly. Extremities: No edema. No clubbing. No cyanosis. Neurological examination: The patient is extremely weak. She is alert and she is oriented x3. She is following commands. LABORATORY: WBC 17.4, hemoglobin 9.2, hematocrit 31.2, platelets 470. Sodium 143, potassium 2.3, chloride 93, bicarbonate 39. BUN 15, creatinine 0.5, glucose 187, calcium 7.6. ASSESSMENT AND PLAN: 1. Acute hypoxemic and hypercapnic respiratory failure secondary to advanced chronic obstructive pulmonary disease exacerbation. Continue with the BiPAP machine. Pulmonary Department on board. Infectious Disease Department on board as well. Continue with antibiotics. 2. Chronic obstructive pulmonary disease exacerbation. Continue oxygen supplementation and bronchodilators. 3. Pneumonia. Continue with antibiotics. Infectious Disease is on board. 4. Anxiety and depression. Continue with home medication. 5. Hypothyroidism. Continue with thyroid medication. 6. Hypertension, controlled. Continue with the same management. 7. Immunodeficiency, aware. Infectious Disease on board. 8. Deep vein thrombosis prophylaxis with Lovenox. 9. Gastrointestinal prophylaxis with proton pump inhibitors. This patient has been placed do not resuscitate level 1. We will continue with medical treatment. Her prognosis is poor due to her advanced chronic obstructive pulmonary disease, weakness, comorbidities and age. cc: Aden Fernandes MD
[2018-08-11 09:08] LABS: ALLEN TEST YES; BE 22.2 mmoll (-3.0-3.0); BLOOD TYPE ARTERIAL; HCO3-(ACT) 42.3 mmoll (20.0-26.0); METHB 0.7 % (0.0-1.5); O2(CT) 12.3 mL/dL (15.0-23.0); O2HB 97.3 % (95.0-99.0); PO2(98.6) 128 mmHg (60-100); SAMPLE BLOOD; SAO2 99.3 % (95.0-100.0); SRATE 18 BPM; THB 8.8 g/dL (11.5-17.4); pH(98.6) 7.51 (7.35-7.45)
[2018-08-11 09:10] LABS: MODALITY BI PAP; PCO2(98.6) 60 mmHg (35-45)
[2018-08-11] MEDS ORDERED: NS 250 ML ONE (09:54)
[2018-08-11] MEDS: ZOLOFT PO SCH (10:31)
[2018-08-11] MEDS: KLOR-CON PO SCH (11:13)
[2018-08-11] MEDS ORDERED: POTASSIUM CHLORIDE 40 MEQ/SWI 40 MEQ/100 ML IVPB IV ONE (12:18)
[2018-08-11 18:21] LABS: AGAP 10; BUN 16 mg/dL (8-22); CALCIUM 7.3 mg/dL (8.8-10.2); CHLORIDE 93 mmol/L (98-107); COSMO 292; CREATININE 0.5 mg/dL (0.5-0.9); ESTIMATED GFR > 60; GLUCOSE 204 mg/dL (70-104); SODIUM 143 mmol/L (136-145); TCO2 40 mmol/L (25-35)
--- NOTE | 2018-08-11 19:51 | PULMONOLOGY PROGRESS NOTE ---
DATE: 08/11/2018 SUBJECTIVE: Patient reports she has been on the BiPAP all day long. She has taken it off occasionally for sips of water. She has shortness of breath with any movement in the bed. OBJECTIVE: Vital Signs: The patient has been afebrile for the last 24 hours. Blood pressure 112/69, heart rate 104, respiratory rate 24, oxygen saturation 100% on BiPAP. HEENT: Pupils are equal and reactive. Oropharynx appears dry, but evaluation is limited. Neck: Supple. Chest: Chest reveals prolonged expiratory phase bilaterally with marked decrease in breath sounds. Cardiac: Distant heart sounds. Normal S1, normal S2. Abdomen: Soft, without hepatosplenomegaly. Extremities: Extremities are without significant edema. LABORATORIES: Arterial blood gas reveals a pH of 7.51, pCO2 of 60, PO2 of 128. White blood count 17.42, hemoglobin 9.2, platelet count 470,000. Sodium 143, potassium 3.0, chloride 93, bicarbonate 40, BUN 16, creatinine 0.5. Chest x-ray reveals bibasilar infiltrates, bilateral trace effusions. IMPRESSION: A 72-year-old with end-stage COPD, bronchiectasis, pseudomonal pneumonia, acute hypercapnic respiratory failure, acute hypoxemic respiratory failure. She remains on BiPAP. She has had difficulty with p.o. intake. She is having some nausea. It will be difficult to place an NG with the nausea and with the BiPAP in place. In addition, any distention of the stomach will make her shortness of breath more severe. RECOMMENDATIONS: 1. Continue antipseudomonal antibiotics. 2. Continue bronchial hygiene. 3. Continue BiPAP/supplemental oxygen as tolerated. 4. Will add lipids and increase her Clinimix dose. Would try and delay placing an NG tube if possible. 5. Overall prognosis is poor. Her resuscitation status has been addressed. cc: Mario Regalado MD
[2018-08-11] MEDS: LIPOSYN 20% 250 ML IV SCH (20:30)
[2018-08-11] MEDS: LASIX IV SCH (20:31)
[2018-08-11] MEDS ORDERED: CALMOSEPTINE OINTMENT TOP PRN (20:57)
[2018-08-12] MEDS: ZOSYN 3.375 GM in NS 50 ML IV SCH ×4 (01:57→20:38)
[2018-08-12] MEDS: ZYVOX 600 MG/D5W 600 MG/300 ML IVPB IV SCH ×2 (02:27→14:42)
[2018-08-12] MEDS: DUONEB (A & A) INH SCH ×6 (03:16→22:57)
[2018-08-12] MEDS: LASIX IV SCH (03:28)
[2018-08-12] MEDS: ZOFRAN IV PRN ×5 (03:36→21:34)
[2018-08-12 03:38] LABS: ALLEN TEST YES; BE 26.3 mmoll (-3.0-3.0); BLOOD TYPE ARTERIAL; HCO3-(ACT) 45.5 mmoll (20.0-26.0); O2(CT) 11.6 mL/dL (15.0-23.0); O2HB 97.1 % (95.0-99.0); PO2(98.6) 131 mmHg (60-100); SAMPLE BLOOD; SAO2 99.2 % (95.0-100.0); THB 8.3 g/dL (11.5-17.4); pH(98.6) 7.55 (7.35-7.45)
[2018-08-12 03:41] LABS: MODALITY BI PAP
[2018-08-12 03:49] LABS: PCO2(98.6) 59 mmHg (35-45)
[2018-08-12] MEDS: SOLU-MEDROL IV SCH ×2 (05:34→17:22)
[2018-08-12] MEDS: CLINIMIX E 4.25%-5% SOLUTION 1,000 ML IV SCH ×2 (05:34→17:23)
[2018-08-12 06:01] LABS: BASO# 0.02 X1000 (0.0-0.2); BASO% 0.1 % (0.0-0.8); HEMATOCRIT 28.6 % (37.0-47.0); HEMOGLOBIN 8.5 g/dL (12.0-16.0); IMM GRAN# 0.29 X1000 (0.0-0.04); LYMPH# 0.78 X1000 (1.2-3.4); LYMPH% 5.3 % (20.5-51.1); MAGNESIUM 1.5 mg/dL (1.5-2.7); MCH 28.1 PG (27-31); MCHC 29.7 g/dL (33-37); MCV 94.7 FL (81-99); MONO% 6.9 % (1.7-9.3); MPV 9.8 FL (7.4-10.4); NEUT% 85.7 % (42.2-75.2); PHOSPHORUS 1.9 mg/dL (2.7-4.5); PLT 416 X1000 (130-400); RBC 3.02 XMIL (4.2-5.4); RDW 15.5 % (11.5-14.5); WBC 14.59 X1000 (4.8-10.8)
[2018-08-12 06:12] LABS: ESTIMATED GFR > 60
[2018-08-12 06:14] LABS: AGAP 12; BUN 23 mg/dL (8-22); CALCIUM 7.5 mg/dL (8.8-10.2); CHLORIDE 85 mmol/L (98-107); COSMO 291; CREATININE 0.6 mg/dL (0.5-0.9); GLUCOSE 245 mg/dL (70-104); POTASSIUM 2.7 mmol/L (3.5-5.1); SODIUM 140 mmol/L (136-145); TCO2 43 mmol/L (25-35)
[2018-08-12 06:21] LABS: LYMPHS 6 % (21-51); MONO 6 % (1-9); SEGS 88 % (42-75)
--- NOTE | 2018-08-12 07:21 | Diag Imaging Result Doc PS360 ---
CHEST-1 VIEW - 08/12/2018 INDICATION: SOB COMPARISON: 08/11/2018 FINDINGS: There has been improvement in the bibasilar infiltrates left greater than right. There are probably small pleural effusions. No new infiltrates. Heart size is normal. There is a right PICC line in good position with the catheter tip at the mid SVC. IMPRESSION: Slight improvement in the bibasilar infiltrates. Electronically signed by Colin Garrison 08/12/2018 7:18 AM
[2018-08-12] MEDS: PROTONIX IV SCH (07:32)
[2018-08-12] MEDS: SYNTHROID PO SCH (07:33)
[2018-08-12] MEDS ORDERED: POTASSIUM CHLORIDE 60 MEQ in NS 500 ML IV ONE (08:18)
[2018-08-12] MEDS: LOVENOX SUBQ SCH (08:25)
[2018-08-12] MEDS: ZOLOFT PO SCH (08:26)
--- NOTE | 2018-08-12 08:57 | PROGRESS NOTE ---
DATE: 08/12/2018 SUBJECTIVE: The patient is completely alert and oriented x3. She is following commands. She is still on the BiPAP machine. Her pCO2 is better compared with yesterday, 59, and she is actually alkalotic. I do believe we can give her a break from the BiPAP machine and recheck the ABGs in a couple of hours to see how she does. She is having some diarrhea and since she has been on antibiotics, I will ask for C. difficile toxin and C. Difficile antigen to rule out C. Difficile colitis. Her potassium level is still low. I will replace it. Chest x-ray showed slight improvement of the bibasilar infiltrates. I will decrease the dose of the steroids to 20 IV twice a day. OBJECTIVE: Vital Signs: Temperature 98.5 degrees, pulse 102, respiratory rate 20, blood pressure 123/76, oxygen saturation 100% on the BiPAP machine. HEENT: Head normocephalic. No trauma. PERRLA. Neck: Supple. No JVD. No masses. Central trachea. Chest: Coarse breath sounds bilaterally. Decreased breath sounds at the bases with some crepitus and rhonchi at the bases. No wheezing today. Abdomen: Soft, nontender, nondistended. No hepatosplenomegaly. Extremities: No edema. No clubbing. No cyanosis. Neurological: This patient is extremely weak, but she is alert and oriented x3. She is following commands. LABORATORY: WBC 14.5, hemoglobin 8.5, hematocrit 28.6, platelets 416,000. PH 7.5. PCO2 59. Sodium 140, potassium 2.7, chloride 85, bicarbonate 43, BUN 23, creatinine 0.6, glucose 245. Calcium 7.5, phosphorus 1.9. ASSESSMENT AND PLAN: 1. Acute on chronic hypoxemic and hypercapnic respiratory failure secondary to advanced COPD exacerbation. Continue cycling the BiPAP machine. I do believe we can give her a break the BiPAP machine at this moment and recheck the ABGs in a couple of hours. Respiratory Therapy on board as well as Pulmonary Department. I will continue following recommendations. Continue with antibiotics, pulmonary toilet and breathing treatment. 2. Chronic obstructive pulmonary disease exacerbation. Continue with oxygen supplementation, bronchodilators, antibiotics. I have decreased the dose of the steroids to 20 IV twice a day. 3. Pneumonia, continue with antibiotics. Infectious disease is on board. This patient's x-ray today showed a slight improvement of the bibasilar infiltrates. 4. Hypothyroidism. Continue with thyroid medication. 5. Anxiety and depression. Continue home medication. 6. Hypertension, controlled. Continue with the same management. 7. Immunodeficiency, aware. Infectious Disease is on board. 8. Deep vein thrombosis prophylaxis with Lovenox. 9. Gastrointestinal prophylaxis with proton pump inhibitor. 10. Diarrhea, I will get a C. difficile toxin and antigen to rule out C. difficile colitis. Also, I will ask for a culture and WBC in the stool. We will monitor this closely. 11. Hypokalemia. I will replace the potassium again. cc: Aden Fernandes MD
[2018-08-12] MEDS ORDERED: AYR NASAL SPRAY NAS PRN (09:20)
[2018-08-12 10:22] LABS: ALLEN TEST YES; BE 25.2 mmoll (-3.0-3.0); BLOOD TYPE ARTERIAL; HCO3-(ACT) 44.6 mmoll (20.0-26.0); METHB 1.1 % (0.0-1.5); O2(CT) 15.9 mL/dL (15.0-23.0); O2HB 95.8 % (95.0-99.0); PO2(98.6) 86 mmHg (60-100); SAMPLE BLOOD; THB 11.7 g/dL (11.5-17.4); pH(98.6) 7.53 (7.35-7.45)
[2018-08-12 10:23] LABS: PCO2(98.6) 62 mmHg (35-45)
[2018-08-12 10:24] LABS: MODALITY VENTIMASK
[2018-08-12] MEDS: LIPOSYN 20% 250 ML IV SCH ×2 (17:23→20:37)
[2018-08-12] MEDS: ATIVAN IV PRN (17:31)
[2018-08-12] MEDS ORDERED: ATIVAN ONE (17:36)
--- NOTE | 2018-08-12 20:16 | PULMONOLOGY PROGRESS NOTE ---
DATE: 08/12/2018 SUBJECTIVE: Patient is awake, alert and conversant. She had some minor hemoptysis earlier today which has resolved. OBJECTIVE: Vital Signs: The patient has been afebrile for the last 24 hours. Blood pressure 120/61, heart rate 99, respiratory rate 18. Oxygen saturation 99% on Venturi mask. HEENT: Pupils are equal and reactive. Oropharynx is clear. Neck: Supple. Chest: Reveals markedly diminished breath sounds bilaterally with coarse rhonchi. Cardiac: S1, S2. Abdomen: Soft and without hepatosplenomegaly. Extremities: Without edema. LABORATORY: Chest x-ray reveals bibasilar infiltrates with small effusions with marginal improvement compared with yesterday. White blood count 14.6, hemoglobin 8.5, platelet count 416,000. Arterial blood gas: PH 7.53, pCO2 of 62, PO2 of 86. IMPRESSION: A 72-year-old with end-stage chronic obstructive pulmonary disease, bronchiectasis, pseudomonal pneumonia, minor hemoptysis, acute hypercapnic respiratory failure, acute hypoxemic respiratory failure. She has marginally improves radiographically and clinically today and is currently on a Venti mask. The patient reports that she is tired of being ill and is requesting to go home with hospice. Her niece is at the bedside. This has been discussed with Dr. Palma and they are currently arranging the patient a discharge to [facility]. With her recurrent admission and severe disease, I agree with plans for hospice and comfort measures. RECOMMENDATIONS: 1. Continue BiPAP and oxygen. The patient has a BiPAP machine at home, according to the niece's report. 2. Continue bronchial hygiene. 3. Anticipate discharge home to the services of [facility]. cc: Mario Regalado MD
[2018-08-13] MEDS: ZOSYN 3.375 GM in NS 50 ML IV SCH ×4 (01:47→20:21)
[2018-08-13] MEDS: ZYVOX 600 MG/D5W 600 MG/300 ML IVPB IV SCH ×2 (01:47→13:52)
[2018-08-13] MEDS: ZOFRAN IV PRN ×2 (01:49→05:37)
[2018-08-13] MEDS: DUONEB (A & A) INH SCH ×6 (03:27→23:05)
[2018-08-13 03:48] LABS: ALLEN TEST YES; BE 19.1 mmoll (-3.0-3.0); BLOOD TYPE ARTERIAL; HCO3-(ACT) 39.8 mmoll (20.0-26.0); METHB 1.6 % (0.0-1.5); O2(CT) 7.7 mL/dL (15.0-23.0); O2HB 92.4 % (95.0-99.0); PO2(98.6) 64 mmHg (60-100); SAMPLE BLOOD; SAO2 94.7 % (95.0-100.0); THB 5.8 g/dL (11.5-17.4); pH(98.6) 7.43 (7.35-7.45)
[2018-08-13 03:49] LABS: MODALITY VENTIMASK
[2018-08-13 03:50] LABS: PCO2(98.6) 68 mmHg (35-45)
[2018-08-13 05:18] LABS: BASO# 0.04 X1000 (0.0-0.2); BASO% 0.3 % (0.0-0.8); EOS# 0.02 X1000 (0.0-0.7); EOS% 0.2 % (0.0-10.0); HEMATOCRIT 26.7 % (37.0-47.0); HEMOGLOBIN 7.8 g/dL (12.0-16.0); IMM GRAN# 0.54 X1000 (0.0-0.04); IMM GRAN% 4.1 % (0.0-0.5); LYMPH% 7.5 % (20.5-51.1); MCH 28.1 PG (27-31); MCHC 29.2 g/dL (33-37); MONO# 1.07 X1000 (0.11-0.59); MONO% 8.1 % (1.7-9.3); MPV 9.8 FL (7.4-10.4); NEUT# 10.61 X1000 (1.4-6.5); NEUT% 79.8 % (42.2-75.2); PLT 406 X1000 (130-400); RBC 2.78 XMIL (4.2-5.4); RDW 15.6 % (11.5-14.5); WBC 13.28 X1000 (4.8-10.8)
[2018-08-13] MEDS: SOLU-MEDROL IV SCH ×2 (05:25→17:39)
[2018-08-13] MEDS: PROTONIX IV SCH (05:25)
[2018-08-13] MEDS: CLINIMIX E 4.25%-5% SOLUTION 1,000 ML IV SCH ×2 (05:25→20:22)
[2018-08-13 05:48] LABS: AGAP 8; BUN 22 mg/dL (8-22); CHLORIDE 94 mmol/L (98-107); COSMO 285; CREATININE 0.4 mg/dL (0.5-0.9); ESTIMATED GFR > 60; GLUCOSE 166 mg/dL (70-104); POTASSIUM 3.6 mmol/L (3.5-5.1); SODIUM 139 mmol/L (136-145); TCO2 37 mmol/L (25-35)
[2018-08-13] MEDS: SYNTHROID PO SCH (06:25)
--- NOTE | 2018-08-13 06:51 | Diag Imaging Result Doc PS360 ---
EXAM: CHEST-1 VIEW HISTORY: SOB TECHNIQUE: Chest single view COMPARISON: 08/12/2018 FINDINGS: No change in the right-sided portacatheter. No cardiomegaly. There are small pleural effusions. Persistent infiltrates in the lung bases. The upper lungs are clear. IMPRESSION: Stable chest. Electronically signed by Jamie Stephenson 08/13/2018 6:48 AM
[2018-08-13 07:05] LABS: BANDS 2 % (0-1); LYMPHS 8 % (21-51); MONO 4 % (1-9); SEGS 84 % (42-75)
--- NOTE | 2018-08-13 07:12 | INFECTIOUS DISEASE PROGRESS NO ---
DATE: 08/13/2018 PRESENT ILLNESS: The patient is admitted to the hospital. It is seen that she had bibasilar pneumonia and/or pulmonary venous congestion. MEDICATIONS: The patient has been receiving Zyvox and Zosyn now for 4 days. She previously had grown Pseudomonas and methicillin-resistant Staph aureus from her sputum. PHYSICAL EXAMINATION: Vital Signs: Temperature is 98.3 degrees, pulse 97, respirations 18, blood pressure 142/69. The patient weighs 100 pounds. General: This is a chronically ill-appearing and somewhat malnourished, elderly female. She is lethargic this morning. HEENT: She is able to hear my spoken words. It seems like she can see near objects. She is wearing a BiPAP mask. Her tongue does not have any white coating on it. Neck: No stiffness. Thorax: The patient has an increased AP diameter of the chest. Lungs: Clear to auscultation. Cardiovascular: Heart rate is regular. Abdomen: Soft and not tender. Neurologic: The patient is lethargic. She does not have a tremor. LAB AND RADIOLOGY: CBC-WBC 13.28, hgb 7.8, platelets 406K. Creatinine-0.4. GFR- >60. Chest x-ray is done but no reading is present at this time. ASSESSMENT AND PLAN: It is my understanding that the patient wants to go with hospice care, and I thoroughly agree with that. I do not think her chances of doing well are minimal, and I think comfort measures only is by far the best way to proceed. For right now, the patient is on Zyvox and Zosyn, but with the procalcitonin of less than 0.1, it would be unlikely that she does have pneumonia. For now, however, I am going to keep the antibiotics going because on her x-ray this morning, I thought I saw some bibasilar infiltrates, but the radiologist has not read the chest x- ray officially. COMORBIDITIES: She has severe chronic obstructive pulmonary disease. She also has gastroesophageal reflux disease and an immunoglobulin deficiency. cc: MD JAIDEN Anderson
[2018-08-13] MEDS ORDERED: VANCOCIN PO SCH (08:00)
--- NOTE | 2018-08-13 08:25 | INFECTIOUS DISEASE PROGRESS NO ---
DATE: 08/13/2018 ADDENDUM: The patient's stool for Clostridium difficile toxin was negative. However, the Clostridium difficile antigen was positive. In my experience, when the antigen is positive, the patients do in fact have diarrhea caused by Clostridium difficile and respond to treatment that it is usually given for Clostridium difficile diarrhea Therefore, since the patient's Clostridium difficile antigen is positive, even though the toxin is negative, I am going to start her on p.o. vancomycin every 6 hours. cc: Abraham Dyer MD
[2018-08-13] MEDS: ZOLOFT PO SCH (08:43)
[2018-08-13] MEDS: LOVENOX SUBQ SCH (08:43)
--- NOTE | 2018-08-13 09:02 | PROGRESS NOTE ---
DATE: 08/13/2018 SUBJECTIVE: This patient is awake. She is alert. She is answering my questions. She is still complaining of shortness of breath and generalized weakness. Family members at the bedside. She has been having diarrhea, and the C. difficile antigen he is positive, with negative toxin. She has been placed on vancomycin p.o. by the Infectious Diseases Department. We have been discussing with the family the possibility of sending this patient home with hospice. I talked to the patient today, and she wants to stay here a little bit longer. I will try to meet with the family to see what they think about that. OBJECTIVE: Vital Signs: Temperature 98 degrees, pulse 98, respiratory rate 20, blood pressure 132/63, oxygen saturation 99 on a Ventimask. HEENT: Head normocephalic. No trauma. PERRLA. Neck: Supple. No JVD. No masses. Central trachea. Chest: Coarse breath sounds bilaterally. Decreased breath sounds at the bases, with some crepitus and rhonchi at the bases as well. Abdomen: Soft, nontender, nondistended. No hepatosplenomegaly. Extremities: No edema. No clubbing. No cyanosis. Neurological: The patient is extremely weak, but she is alert and oriented. She is following commands. LABORATORY STUDIES: WBC 13.2, hemoglobin 7.8, hematocrit 26.7, platelets 406, pCO2 68. Sodium 139, potassium 3.6, chloride 94, bicarbonate 37, BUN 22, creatinine 0.4, glucose 166. Calcium 8. ASSESSMENT AND PLAN: 1. Cnyvr-pm-[id number] hypoxemic and hypercapnic respiratory failure, secondary to advanced chronic obstructive pulmonary disease exacerbation. Continue cycling the BiPAP machine and Ventimask. Pulmonary Department on board. We will continue following recommendations, continue with antibiotics, pulmonary toilet, and breathing treatment. 2. Chronic obstructive pulmonary disease exacerbation. Continue with oxygen supplementation, bronchodilators, antibiotics. I decreased the dose of the steroids yesterday to 20 IV twice a day. I will keep it that way today. 3. Pneumonia. Continue with antibiotics. There are some infiltrates in the x-rays, but the procalcitonin level is low. Infectious Diseases Department has decided to keep this patient on antibiotics, and given her current presentation, I agree with that. 4. Hypothyroidism. Continue with thyroid medication. 5. Anxiety and depression. Continue home medication. 6. Hypertension, controlled. Continue with the same management. 7. Immunodeficiency. Aware. 8. Deep vein thrombosis prophylaxis with Lovenox. 9. Gastrointestinal prophylaxis with proton pump inhibitor. 10. Diarrhea, with a positive C. difficile antigen. This patient has been placed on treatment for C. difficile colitis. We will continue to monitor. 11. Hypokalemia, resolved. cc: Aden Fernandes MD
[2018-08-13] MEDS: VANCOMYCIN ORAL SOLN PO SCH ×3 (09:57→20:22)
[2018-08-13] MEDS: ATIVAN IV PRN (18:25)
[2018-08-13] MEDS: LIPOSYN 20% 250 ML IV SCH (20:21)
[2018-08-14] MEDS: ATIVAN IV PRN ×4 (00:12→22:20)
[2018-08-14] MEDS: ZOSYN 3.375 GM in NS 50 ML IV SCH ×2 (01:45→08:19)
[2018-08-14] MEDS: ZYVOX 600 MG/D5W 600 MG/300 ML IVPB IV SCH (01:45)
[2018-08-14] MEDS: VANCOMYCIN ORAL SOLN PO SCH ×4 (01:47→21:45)
[2018-08-14] MEDS: DUONEB (A & A) INH SCH ×6 (03:31→23:08)
[2018-08-14 03:49] LABS: ALLEN TEST YES; BE 14.7 mmoll (-3.0-3.0); BLOOD TYPE ARTERIAL; HCO3-(ACT) 36.4 mmoll (20.0-26.0); O2(CT) 8.1 mL/dL (15.0-23.0); O2HB 96.8 % (95.0-99.0); PO2(98.6) 173 mmHg (60-100); SAMPLE BLOOD; SAO2 98.9 % (95.0-100.0); THB 5.6 g/dL (11.5-17.4); pH(98.6) 7.44 (7.35-7.45)
[2018-08-14 03:50] LABS: MODALITY VENTIMASK
[2018-08-14 03:51] LABS: PCO2(98.6) 59 mmHg (35-45)
[2018-08-14 05:46] LABS: AGAP 7; BUN 16 mg/dL (8-22); CALCIUM 7.7 mg/dL (8.8-10.2); CHLORIDE 97 mmol/L (98-107); COSMO 281; CREATININE 0.4 mg/dL (0.5-0.9); ESTIMATED GFR > 60; GLUCOSE 141 mg/dL (70-104); POTASSIUM 4.1 mmol/L (3.5-5.1); SODIUM 139 mmol/L (136-145); TCO2 35 mmol/L (25-35)
[2018-08-14 05:48] LABS: BASO# 0.05 X1000 (0.0-0.2); BASO% 0.4 % (0.0-0.8); HEMATOCRIT 27.4 % (37.0-47.0); HEMOGLOBIN 7.9 g/dL (12.0-16.0); IMM GRAN# 0.54 X1000 (0.0-0.04); IMM GRAN% 4.6 % (0.0-0.5); LYMPH# 1.09 X1000 (1.2-3.4); LYMPH% 9.2 % (20.5-51.1); MCH 27.6 PG (27-31); MCHC 28.8 g/dL (33-37); MCV 95.8 FL (81-99); MONO# 0.82 X1000 (0.11-0.59); MONO% 6.9 % (1.7-9.3); MPV 9.7 FL (7.4-10.4); NEUT# 9.33 X1000 (1.4-6.5); NEUT% 78.9 % (42.2-75.2); PLT 406 X1000 (130-400); RBC 2.86 XMIL (4.2-5.4); RDW 15.4 % (11.5-14.5); WBC 11.83 X1000 (4.8-10.8)
[2018-08-14] MEDS: SOLU-MEDROL IV SCH ×2 (06:04→17:27)
[2018-08-14] MEDS: SYNTHROID PO SCH (06:04)
[2018-08-14] MEDS: PROTONIX IV SCH (06:04)
--- NOTE | 2018-08-14 08:02 | Diag Imaging Result Doc PS360 ---
EXAM: CHEST-1 VIEW 08/14/2018 HISTORY: SOB TECHNIQUE: AP portable upright at 0751 COMMENT: Compared to the previous study of 08/13/2018 there has been improvement in the basilar opacities particularly in the left lower lobe. IMPRESSION: Improved pulmonary edema and/or pneumonia. Electronically signed by Prem Rosenthal 08/14/2018 8:00 AM
[2018-08-14] MEDS: CLINIMIX E 4.25%-5% SOLUTION 1,000 ML IV SCH ×3 (08:08→21:44)
[2018-08-14] MEDS: ZOLOFT PO SCH (08:19)
[2018-08-14] MEDS: LOVENOX SUBQ SCH (08:20)
[2018-08-14] MEDS: ZOFRAN IV PRN ×2 (08:27→18:15)
--- NOTE | 2018-08-14 10:47 | INFECTIOUS DISEASE PROGRESS NO ---
DATE: 08/14/2018 PRESENT ILLNESS: The patient has a Pseudomonas pneumonia. Unfortunately, her organism is resistant to all antibiotics except amikacin. The patient also has Clostridium difficile diarrhea. MEDICATIONS: Currently, the patient is getting Zyvox and Zosyn. She also is getting vancomycin p.o. for the Clostridium difficile diarrhea. PHYSICAL EXAMINATION: Vital Signs: Temperature is 98.4 degrees, pulse 84, respirations 22, blood pressure 130/62. General: This is a chronically ill-appearing and malnourished elderly female. She is lethargic and seems to be somewhat dyspneic even though she is lying in bed. Head/eyes/ears/nose/throat: She can hear my spoken words and see near objects. She is able to talk. She does not have any white coating on her tongue. Neck: No meningismus. Thorax: The patient has an increased AP diameter of the chest. Lungs: There were bilateral rhonchi. Cardiovascular: Heart rate is regular. Abdomen: Soft and nontender. Neurologic: The patient is lethargic. She does not have a tremor. LAB AND X-RAY: Chest x-ray shows improvement in the pulmonary edema and/or pneumonia in the lower lobes. [place] [address], hemoglobin 7.9, and platelet count 406,000. Blood gases show a pH of 7.44, pO2 of 173, a pCO2 of 59. Creatinine is 0.4. GFR is greater than 60. ASSESSMENT AND PLAN: Patient has Pseudomonas pneumonia for which she is resistant to all the antibiotics that we usually use except for amikacin. I discussed with the patient that we could try another antibiotic such as colistin or some new one, but I felt that in any event she would become resistant to the new antibiotic. I asked her if she wanted to try another antibiotic or if she wanted to just stick with comfort measures, and she indicated for right now she just wants to do comfort measures and not try another antibiotic. I told her that even if we did try another one, I thought she would become resistant to that and it would not help her lung function much because she has so severe COPD changes already. The patient will let me know if she would like to try another antibiotic. COMORBIDITIES: The patient has severe chronic obstructive pulmonary disease. She also has gastroesophageal reflux disease and an immunoglobulin deficiency. cc: Abraham Dyer MD
[2018-08-14] MEDS ORDERED: NS 500 ML ONE (14:18)
--- NOTE | 2018-08-14 14:51 | PROGRESS NOTE ---
DATE: 08/14/2018 SUBJECTIVE: Patient resting in bed. Not in any obvious distress. OBJECTIVE: Vital signs: Vital signs are as follows: Temperature 97.7 degrees, pulse 106, respiratory rate 18, blood pressure is 131/67, saturating on oxygen 93%. HEENT: Atraumatic, normocephalic. Cardiovascular System,: S1, S2. Respiratory System: Decreased air entry bilaterally. Abdomen: Soft. Nontender. No masses felt. Central nervous system: No obvious focal deficits noted. LABS: Labs are as follows: WBC 11.83, hematocrit is 27.4 with a platelet count of 406. AB.44/59/30/98.9. Sodium 139, potassium 4.1, chloride is 97, bicarbonate 25. BUN is 16, creatinine 0.4. X-RAYS: X-ray of her chest shows improved pulmonary edema. No pneumonia. ASSESSMENT AND PLAN: 1. Acute respiratory failure. Maintain the patient on BiPAP if necessary. Otherwise place her on oxygen to keep saturations above 90. Pulmonary team following. 2. Chronic obstructive pulmonary disease. Continue nebulized bronchodilators steroids as well as antibiotics. 3. Pneumonia. Continue antibiotics. Follow up on sputum blood cultures. 4. Hypothyroidism. Continue levothyroxine. 5. Anxiety with depression. Continue medications. 6. Hypertension. Continue antihypertensive medications. 7. Deep vein thrombosis prophylaxis. Lovenox. 8. Gastrointestinal prophylaxis. Proton pump inhibitor. 9. Clostridium difficile colitis. Continue Flagyl. cc: Krishan Diamond MD
[2018-08-14] MEDS: LIPOSYN 20% 250 ML IV SCH ×2 (16:09→20:44)
--- NOTE | 2018-08-14 17:39 | ED EKG INTERP ---
This chart was entered by Michelle Slade Scribe, acting as scribe for Terra Bello MD. EKG Interpretation - EKG Time of EKG reading by physician:: 17:26 EKG Read and Signed by:: Terra Bello EKG Interpretation (*Must complete 3 of following elements*): Abnormal Rate: 105 Rhythm: sinus tachy with atrial complexes with ab cond [place]: normal QRS: normal PA Interval: normal Attestation - Physician/ KAVYA Attestation The physician spent face to face time with patient:: Yes Advanced Practice Provider documentation review:: Supervising physician onsite and consulted in the evaluation and care of this patient. The physician did have a face to face encounter with the patient. This chart was documented by the indicated scribe, (Michelle Slade Scribe) and accurately reflects the services I performed and decisions made by me, Terra Bello MD, as attested by the provider's signature.
[2018-08-14] MEDS ORDERED: NORCO-5 PO PRN (17:45)
[2018-08-14] MEDS ORDERED: MORPHINE IV ONE ×2 (21:04→21:30)
[2018-08-15] MEDS: VANCOMYCIN ORAL SOLN PO SCH ×4 (02:23→20:55)
[2018-08-15] MEDS: MORPHINE IV PRN ×3 (02:50→21:26)
[2018-08-15] MEDS: DUONEB (A & A) INH SCH ×6 (03:16→23:10)
[2018-08-15 03:41] LABS: ALLEN TEST YES; BE 12.7 mmoll (-3.0-3.0); BLOOD TYPE ARTERIAL; HCO3-(ACT) 34.8 mmoll (20.0-26.0); METHB 0.7 % (0.0-1.5); O2(CT) 13.6 mL/dL (15.0-23.0); O2HB 94.2 % (95.0-99.0); PO2(98.6) 76 mmHg (60-100); SAMPLE BLOOD; SAO2 97.1 % (95.0-100.0); THB 10.2 g/dL (11.5-17.4); pH(98.6) 7.34 (7.35-7.45)
[2018-08-15 03:43] LABS: MODALITY VENTIMASK; PCO2(98.6) 76 mmHg (35-45)
[2018-08-15 05:53] LABS: BASO# 0.06 X1000 (0.0-0.2); BASO% 0.4 % (0.0-0.8); EOS# 0.01 X1000 (0.0-0.7); EOS% 0.1 % (0.0-10.0); HEMATOCRIT 32.2 % (37.0-47.0); HEMOGLOBIN 9.6 g/dL (12.0-16.0); IMM GRAN# 0.82 X1000 (0.0-0.04); IMM GRAN% 5.9 % (0.0-0.5); LYMPH% 10.1 % (20.5-51.1); MCH 28.2 PG (27-31); MCHC 29.8 g/dL (33-37); MCV 94.7 FL (81-99); MONO# 1.22 X1000 (0.11-0.59); MONO% 8.8 % (1.7-9.3); MPV 9.7 FL (7.4-10.4); NEUT# 10.42 X1000 (1.4-6.5); NEUT% 74.7 % (42.2-75.2); PLT 375 X1000 (130-400); RDW 15.5 % (11.5-14.5); WBC 13.93 X1000 (4.8-10.8)
[2018-08-15 06:26] LABS: AGAP 6; BUN 20 mg/dL (8-22); CALCIUM 7.7 mg/dL (8.8-10.2); CHLORIDE 99 mmol/L (98-107); COSMO 284; CREATININE 0.3 mg/dL (0.5-0.9); ESTIMATED GFR > 60; GLUCOSE 102 mg/dL (70-104); POTASSIUM 4.5 mmol/L (3.5-5.1); SODIUM 141 mmol/L (136-145); TCO2 36 mmol/L (25-35)
[2018-08-15] MEDS: SOLU-MEDROL IV SCH ×2 (06:30→20:59)
[2018-08-15] MEDS: PROTONIX IV SCH (06:30)
[2018-08-15] MEDS: SYNTHROID PO SCH (06:31)
[2018-08-15] MEDS: ZOFRAN IV PRN ×2 (06:38→15:53)
[2018-08-15] MEDS ORDERED: MISC. PHARMACY COMMUNICATION SCH ×2 (07:15)
--- NOTE | 2018-08-15 07:31 | Diag Imaging Result Doc PS360 ---
EXAM: CHEST-1 VIEW INDICATION: SOB TECHNIQUE: One view COMPARISON: 08/14/2018 FINDINGS: The right PICC line is in stable position. Bibasilar opacities suggesting edema +/- pneumonia are stable given slight differences in positioning. No new consolidation is identified. Cardiac silhouette is stable. IMPRESSION: Essentially stable chest. Electronically signed by Deon Boucher 08/15/2018 7:28 AM
--- NOTE | 2018-08-15 07:46 | INFECTIOUS DISEASE PROGRESS NO ---
DATE: 08/15/2018 PRESENT ILLNESS: The patient has multiply drug-resistant Pseudomonas pneumonia. Also, the patient has Clostridium difficile diarrhea. The patient also has an immunoglobulin deficiency. MEDICATIONS: The patient is on vancomycin p.o., but no other antibiotics. PHYSICAL EXAMINATION: Vital Signs: Temperature is 98.5 degrees, pulse 95, respirations 24, blood pressure 138/63. General: This is a chronically ill-appearing and malnourished , elderly female. She is lethargic, but she was able to carry on a conversation. HEENT: No drainage noted from the nose or ears. Thorax: The patient has increased AP diameter of the chest. Lungs: There were bilateral rhonchi. Cardiovascular: Heart rate is regular. Abdomen: Soft and nontender. Neurologic: The patient is lethargic. She is able to move her extremities. She does not have a tremor. IMAGING AND LABORATORY DATA: There is an x-ray that the radiologist has not read. My reading of it is that the patient has bibasilar infiltrates. Creatinine is 0.3. GFR is greater than 60. Blood gases show a pH of 7.34, pO2 of 76, a pCO2 of 76. ASSESSMENT AND PLAN: The patient has a multidrug-resistant Pseudomonas pneumonia. I plan to treat it in the following way. Start intravenous colistin with pharmacy to dose , and start amikacin by inhalation, pharmacy to dose. I have requested that the Pseudomonas be sent off for susceptibility drug testing against colistin and Avycaz. The patient has received intravenous immunoglobulin, and I will wait a little bit more to see if the IgG level drops back to less than normal amount. COMORBIDITIES: She has severe chronic obstructive pulmonary disease. She also has gastroesophageal reflux disease and an immunoglobulin deficiency. cc: Abraham Dyer MD [facility]
--- NOTE | 2018-08-15 08:24 | Diag Imaging Result Doc PS360 ---
EXAM: CT THORAX W/CONTRAST 08/15/2018 HISTORY: pneumonia TECHNIQUE: This exam was performed using automated exposure control, adjustment of mA or kV according to patient size, and/or use of iterative reconstruction technique. COMMENT: The current examination is compared to the previous study of 07/12/2018. There is severe bullous emphysema. There is a nodular opacity present posteriorly in the left upper lobe on image 36 which was not previously present and currently measures in excess of 8 mm in diameter. Given the fairly rapid onset of this nodular opacity, the possibility of a septic embolus cannot be excluded. There is atelectasis or pneumonia in both lower lobes. This appears worse than on the previous examination. The consolidation seen posterior laterally in the right middle lobe at the time the previous study has nearly completely resolved. There is some residual atelectasis inferiorly in the right middle lobe. The tree-in-bud opacities which were described on the previous examination have also improved generally. There is some pleural-based opacity present in the right upper lobe particularly around images 39 through 47. This was not previously present. The aorta is stable in appearance. There are no apparent filling defects in the pulmonary arteries. There is considerable inspissated material present in the bronchus intermedius and more distal bronchial branches of the right middle and lower lobe. This is worse than on the previous study. There is no evidence of significant adenopathy. There are some scattered calcified granulomata. There is a left pleural effusion which was not previously present. There is intra and extrahepatic biliary dilatation which was present previously to some extent. This may be physiologic as there has been cholecystectomy. The pancreatic duct is also somewhat more prominent than on the previous study. IMPRESSION: Pneumonia as described in both lower lobes particularly the right lower lobe. New left pleural effusion and left upper lobe pulmonary nodule. Electronically signed by Prem Rosenthal 08/15/2018 8:21 AM
[2018-08-15] MEDS: LOVENOX SUBQ SCH (10:00)
[2018-08-15] MEDS: ZOLOFT PO SCH (10:00)
[2018-08-15] MEDS ORDERED: AMIKACIN MISC ONE (11:00)
--- NOTE | 2018-08-15 11:16 | PROGRESS NOTE ---
DATE: 08/15/2018 SUBJECTIVE: The patient is resting in bed. Not in any obvious distress. OBJECTIVE: Vital Signs: Temperature is 98.4 degrees, pulse 97, respirations 18 , blood pressure is 148/67, oxygen saturation is 95%. HEENT: She is atraumatic and normocephalic. Cardiovascular System: S1 and S2. Respiratory System: Good entry bilaterally. Abdomen: Soft, nontender. No masses felt. Extremities: No edema in the lower extremities. Central Nervous System: No obvious focal deficits noted. Labs: WBCs 13.93, hematocrit is 32.2, with a platelet count of 375,000. ABG 7.34/76/76/97.1. Sodium is 141, potassium 4.5, chloride 99, bicarb 36, BUN is 20, creatinine 0.3. Chest CT shows pneumonia in both lower lobes, particularly in the right lower lobe. Has a new left pleural effusion, as well as a left upper lobe nodule. ASSESSMENT AND PLAN: 1. Acute hypercapnic respiratory failure. Maintain patient on a BiPAP. Follow up on patient's clinical progression as well as the ABGs. The patient is being followed by the pulmonary team. 2. Chronic obstructive pulmonary disease exacerbation. Continue nebulized bronchodilators as well as steroids. 3. Pseudomonas pneumonia. Continue antibiotics as recommended by infectious disease. 4. Pulmonary nodule. A recent CT of the chest shows an 8 mm nodule in the left upper lobe. Pulmonary is on board. 5. Hypothyroidism. Continue levothyroxine. 6. Anxiety with depression. Continue psych medications. 7. Hypertension. Continue antihypertensive medications. 8. Deep vein thrombosis prophylaxis. Lovenox. 9. Gastrointestinal prophylaxis. Proton pump inhibitor. 10. Clostridium difficile colitis. Continue oral vancomycin as recommended by infectious disease. 11. Disposition. Patient would benefit from rehab placement when ready for discharge. cc: Krishan Diamond MD [facility]
[2018-08-15] MEDS: CLINIMIX E 4.25%-5% SOLUTION 1,000 ML IV SCH (12:04)
[2018-08-15] MEDS: COLISTIN IV SCH (12:04)
[2018-08-15] MEDS: NS IV SCH (12:04)
[2018-08-15] MEDS: NS NEB INH SCH ×2 (17:03→19:48)
[2018-08-15] MEDS: LIPOSYN 20% 250 ML IV SCH (17:13)
[2018-08-15] MEDS ORDERED: AMIKACIN MISC SCH (19:30)
[2018-08-15] MEDS: ATIVAN IV PRN (21:25)
[2018-08-16] MEDS: CLINIMIX E 4.25%-5% SOLUTION 1,000 ML IV SCH (01:24)
[2018-08-16] MEDS: VANCOMYCIN ORAL SOLN PO SCH ×2 (02:58→10:12)
[2018-08-16] MEDS: DUONEB (A & A) INH SCH ×3 (03:12→11:30)
[2018-08-16 05:33] LABS: BASO# 0.05 X1000 (0.0-0.2); BASO% 0.3 % (0.0-0.8); HEMATOCRIT 33.5 % (37.0-47.0); IMM GRAN# 0.75 X1000 (0.0-0.04); IMM GRAN% 4.9 % (0.0-0.5); LYMPH# 0.82 X1000 (1.2-3.4); LYMPH% 5.4 % (20.5-51.1); MCH 28.2 PG (27-31); MCHC 29.9 g/dL (33-37); MCV 94.4 FL (81-99); MONO# 0.88 X1000 (0.11-0.59); MONO% 5.8 % (1.7-9.3); MPV 9.7 FL (7.4-10.4); NEUT# 12.78 X1000 (1.4-6.5); NEUT% 83.6 % (42.2-75.2); PLT 320 X1000 (130-400); RBC 3.55 XMIL (4.2-5.4); RDW 15.3 % (11.5-14.5); WBC 15.28 X1000 (4.8-10.8)
[2018-08-16 05:34] LABS: ALLEN TEST YES; BE 15.5 mmoll (-3.0-3.0); BLOOD TYPE ARTERIAL; METHB 0.6 % (0.0-1.5); O2(CT) 13.5 mL/dL (15.0-23.0); O2HB 97.1 % (95.0-99.0); PO2(98.6) 138 mmHg (60-100); SAMPLE BLOOD; SAO2 99.3 % (95.0-100.0); THB 9.7 g/dL (11.5-17.4); pH(98.6) 7.41 (7.35-7.45)
[2018-08-16 05:49] LABS: MODALITY VENTIMASK; PCO2(98.6) 67 mmHg (35-45)
[2018-08-16 06:04] LABS: AGAP 8; ALB/GLOB RATIO 1.2; ALBUMIN 2.9 g/dL (3.5-5.0); ALKALINE PHOSPHATASE 52 U/L (32-104); BUN 18 mg/dL (8-22); CALCIUM 8.2 mg/dL (8.8-10.2); CHLORIDE 98 mmol/L (98-107); COSMO 286; CREATININE 0.3 mg/dL (0.5-0.9); ESTIMATED GFR > 60; GLUCOSE 156 mg/dL (70-104); GOT 10 U/L (10-30); GPT 11 U/L (10-36); POTASSIUM 4.8 mmol/L (3.5-5.1); SODIUM 141 mmol/L (136-145); TCO2 35 mmol/L (25-35); TOTAL PROTEIN 5.4 g/dL (6.3-8.3)
[2018-08-16] MEDS: SYNTHROID PO SCH (06:10)
[2018-08-16] MEDS: PROTONIX IV SCH (06:13)
[2018-08-16 06:52] LABS: LYMPHS 7 % (21-51); MONO 6 % (1-9); SEGS 87 % (42-75)
--- NOTE | 2018-08-16 07:21 | Diag Imaging Result Doc PS360 ---
EXAM: CHEST-1 VIEW 08/16/2018 HISTORY: pneumonia TECHNIQUE: AP portable at 0615 COMMENT: There is alveolar opacity in both lung bases similar in appearance to 08/15/2018. There may be bilateral pleural effusions. This is definitely worse than on 08/14/2018. IMPRESSION: Pulmonary edema and/or pneumonia. Electronically signed by Prem Rosenthal 08/16/2018 7:19 AM
[2018-08-16] MEDS ORDERED: AMIKACIN MISC SCH (07:30)
[2018-08-16] MEDS: NS NEB INH SCH (07:38)
[2018-08-16] MEDS ORDERED: LASIX IV ONE (08:34)
--- NOTE | 2018-08-16 08:47 | INFECTIOUS DISEASE PROGRESS NO ---
DATE: 08/16/2018 PRESENT ILLNESS: The patient has a multiple drug-resistant Pseudomonas pneumonia, Clostridium difficile diarrhea, and an immunoglobulin deficiency. MEDICATIONS: The patient is on vancomycin by mouth for the Clostridium difficile diarrhea. As regarding the patient's Pseudomonas pneumonia, she is on a combination of IV colistin and amikacin by inhalation. As regarding the patient's immunoglobulin deficiency, I will be rechecking her immunoglobulin levels to see if they fall from normal and, if they do, the patient may be a candidate for regular IVIG infusions. PHYSICAL EXAMINATION: Vital Signs: Temperature is 98.6 degrees, pulse 112, respirations 25, blood pressure 138/65. General: This is a chronically ill-appearing and malnourished-appearing elderly female. Today, she seems more alert and she is talking. She still however coughs quite a bit and you can hear without a stethoscope rhonchi in her lungs. Head/eyes/ears/nose/throat: There is no drainage from the nose or ears. The patient does not have any white patches on her tongue. Lungs: As mentioned above, she has audible rhonchi bilaterally. Cardiovascular: Heart rate is regular. Abdomen: Soft and nontender. Neurologic: The patient is more alert today. She can move her extremities. There is no tremor. LAB AND X-RAY: CBC today shows a white count of 15,280, hemoglobin 10 and platelet count 320,000. Blood gases show a pH of 7.41, a PO2 of 138, and a pCO2 of 67. Creatinine is 0.3. GFR is greater than 60. Liver function studies are normal. CT scan of the chest shows some areas which are better and other areas which are worse. ASSESSMENT AND PLAN: Patient has a multidrug resistant Pseudomonas pneumonia. I plan to continue treatment with intravenous colistin and amikacin by inhalation. As regarding the patient's Clostridium difficile diarrhea, I plan to continue vancomycin orally and also as regarding the patient's immunoglobulin deficiency, I will be repeating the levels to see if she needs more IVIG infusions. COMORBIDITIES: The patient's comorbidities: She has severe COPD. She also has gastroesophageal reflux disease and an immunoglobulin deficiency. cc: Abraham Dyer MD
[2018-08-16] MEDS: SOLU-MEDROL IV SCH (10:12)
[2018-08-16] MEDS: ZOLOFT PO SCH (10:12)
[2018-08-16] MEDS: LOVENOX SUBQ SCH (10:13)
[2018-08-16] MEDS: NS IV SCH (10:25)
[2018-08-16] MEDS: COLISTIN IV SCH (10:25)
[2018-08-16] MEDS: ATIVAN IV PRN (11:19)
[2018-08-16] MEDS: MORPHINE IV PRN (11:55)
[2018-08-16 12:19] VITALS: BP 119/72
--- NOTE | 2018-08-16 14:33 | PROGRESS NOTE ---
DATE: 08/16/2018 SUBJECTIVE: The patient resting in bed. The patient's family have decided to opt for home hospice care. OBJECTIVE: Vital Signs: As follows: Temperature 98.6, pulse is 118, respirations 20, blood pressure is 119/72, oxygen saturation is 98%. HEENT: Atraumatic, normocephalic. Cardiovascular: S1, S2. Respiratory: Has evidence of decreased air entry bilaterally. Abdomen : Soft, nontender. No masses felt. Extremities: No evidence of edema. Central Nervous System: No obvious focal deficit noted. ASSESSMENT: 1. Acute hypercapnic respiratory failure. 2. Chronic obstructive pulmonary disease exacerbation. 3. Pseudomonas pneumonia. 4. Pulmonary nodule. 5. Hypothyroidism. 6. Anxiety, with depression. 7. Hypertension. 8. Clostridium difficile colitis. PLAN: The patient's family have voted for hospice care. Hospice has been consulted. They are leaning towards comfort measures. Family's wishes have been honored. In the meantime, we will continue treating the patient for her diverse medical conditions. cc: Krishan Diamond MD [facility]
--- NOTE | 2018-09-01 08:45 | DISCHARGE SUMMARY ---
ADMISSION DATE: 08/09/2018 DISCHARGE DATE: 08/16/2018 PRINCIPAL DIAGNOSIS: Acute respiratory failure. SECONDARY DIAGNOSES: 1. Chronic obstructive pulmonary disease exacerbation. 2. Multidrug resistant Pseudomonas pneumonia. 3. Hypertension. 4. Hypothyroidism. 5. Anxiety disorder. 6. Depression. 7. History of breast cancer. 8. Immunodeficiency. CONSULTATIONS DONE DURING THIS HOSPITAL STAY: 1. Dr. Jesi Snow, Pulmonology. 2. Dr. Olu Wagner, Hematology/Oncology. 3. Dr. Abraham Dyer, Infectious Disease. HOSPITAL COURSE: Ms. Gail Love is a 73-year-old female who was admitted to the hospital because of shortness of breath. She does have a history of COPD, hypertension, hypothyroidism, breast cancer, gastroesophageal reflux disease. The patient had gone to the office of her oncologist, Dr. Wagner, and was found to be hypoxic, and she was subsequently referred to the emergency room. In the ER, she was noted to have significant CO2 retention with her arterial blood pressure being 7.34/71/181/99.6. X-ray of her chest showed evidence of worsening pulmonary edema as well as pneumonia. The patient was placed on BiPAP and sent to the Intensive Care Unit for further management. The patient was maintained on her steroids and nebulized bronchodilators for her COPD and also antibiotics for her pneumonia. She was seen by Pulmonary, Infectious Disease, as well as Oncology teams. During the course of the hospital stay, the patient's family opted for hospice care. Family's wishes where subsequently honored. The patient transferred to hospice. cc: Krishan Diamond MD
== END 2018-08-16 15:12 | disposition hospice, inpatient (51) | DRG 189 ==
LOC: ED 17:07 → ICU 08-09 00:09 → SUATTDRO 08-09 00:09 → 3S 08-11 03:03
PROVIDERS: ATTEND Internal Medicine
CPT/HCPCS: 36415; 36430; 36569; 71010; 71045; 71260; 80048; 80053; 81001; 82550; 82784; 82805; 82948; 83605; 83735; 83880; 84100; 84145; 84484; 85025; 85610; 85730; 86850; 86900; 86901; 86920; 87040; 87045; 87046; 87070; 87077; 87186; 87205; 87324; 87449; 89055; 93005; 93306; 93308; 94640; 94660; 94761; 94762; 96361; 96365; 96367; 96375; 99285; 99291; A9270; C8924; C9113; J0278; J0770; J1650; J1940; J1956; J2020; J2060; J2270; J2405; J2543; J2920; J2930; J3370; J3480; J7030; J7040; J7050; P9016; Q9957; Q9967; S0164; XXXXX